=== PATIENT | male | born 1950 | race Caucasian/White ===

== ENCOUNTER 2023-09-09 17:48 | Emergency (ER) | payer BC, SELFPAY ==
[2023-09-09 17:50] VITALS: BP 176/87
--- NOTE | 2023-09-09 19:09 | ED.GENMED ---
History of Present Illness
General
Chief Complaint: Fainting/Passed Out
Source: patient
Exam Limitations: none
Time Seen by Provider: 09/09/23 18:53
Travel History
Have you had any contact with someone who has COVID-19?: No
Do you have any symptoms of coronavirus? Fever > 100 degrees, chills, cough, shortness of breath, sore throat, loss of taste or smell, muscle aches, or headache?: No
History of Present Illness
History of Present Illness:
This is a 72 year old male that comes in with c/o weakness and syncope. States that he has a bad case of Shingles. States that he started with the Shingles last week and today he went to . State that he was told it was to late to start the
Antivirals. States that today he was in the bathroom and he had passed out. States that he has been feeling very tired and weak. States that he did not eat all day. States that thought he needed an ECG and further evaluation. Denies any fever,
chills, chest pain, SOB, abd pain, nausea, vomiting, diarrhea, headache, dizziness, urinary burning.
Past History
Past History
ED Past Medical History: None; Negative Asthma, HTN, Hypercholesterolemia or NIDDM
ED Past Surgical History: None
Social History
Tobacco: Non-smoker
Alcohol: None
Personal:
Living: with family
Review of Systems
Review of Systems
All Other Systems: ROS reviewed and negative except as documented in HPI and ROS
Constitutional: Reports no symptoms; Denies fever or chills
EENT: Reports no symptoms
Respiratory: Reports no symptoms; Denies cough or trouble breathing
Cardiac: Reports no symptoms; Denies chest pain
ABD/GI: Denies abdominal pain, vomiting, diarrhea or constipated
: Reports no symptoms; Denies dysuria, frequency or urgency
Musculoskeletal: Reports no symptoms
Skin: Reports other (Shingles right abd around to back)
Neurological: Reports no symptoms; Denies dizzy or headache
Psychiatric: Reports no symptoms
Phy Exam
General Physical Exam
General Presentation: no apparent distress
General age: appears stated age
General Skin: warm and dry
General Habitus: elderly
General Mental: alert
General Hydration: appears well hydrated
ENT Exam
ENT Exam: TM's normal, pharynx normal and neck supple
Eye Exam
Eye Exam: EOMI
Cardiovascular Exam
Cardiovascular Exam: regular rate/rhythm, no edema and normal peripheral pulses
Pulmonary Exam
Pulmonary Exam: lungs clear, no respiratory distress, no rales, chest non tender, no crackles, no rhonchi, no wheezing and no cough
Gastrointestinal Exam
Gastrointestinal Exam: normal bowel sounds, non tender, soft, no organomegaly, no pulsatile mass and non distended
Musculoskeletal Exam
Musculoskeletal Exam: full ROM and no edema
Skin Exam
Skin Exam: normal color, warm/dry, no petechia and other (Shingles rash form mid abd around flank and onto the right mid back. Blistered areas noted with redness. )
Psychiatric Exam
Psychiatric Exam: normal mood/affect
Course
Orders/Labs/Results
Orders:
Orders
09/09/23 17:54
Electrocardiogram (*1) Urgent
Reason for Study: Chest Pain
09/09/23 17:55
EKG- Treatment ONCE
09/09/23 19:08
0.9% Sodium Chloride 1000 ml [Nss] 1,000 ml IV BOLUS
09/09/23 19:18
COVID-19 Antigen Urgent
Source: Nasal Swab
Complete Blood Count/With Diff Urgent
Comprehensive Metabolic Panel Urgent
Troponin I Urgent
Influenza A+B Rapid Molecular Urgent
JULY Source: Nasal Swab
Specimen Description:
09/09/23 20:56
Urinalysis Reflex To Culture Urgent
Date Specimen was Collected: 09/09/23
Time Specimen was Collected: 20:27
Urine Microscopic Reflex Cult Urgent
Abnormal Lab Results
09/09/23 09/09/23
19:18 20:56
RBC 4.31 L 10^6/uL
(4.70-6.10)
MCH 32.0 H pg
(27.0-31.0)
Absolute Lymphs (auto) 0.9 L 10^3/uL
(1.2-3.4)
Absolute Monos (auto) 0.9 H 10^3/uL
(0.1-0.6)
Neutrophils % 76.9 H %
(42.2-75.2)
Lymphocytes % 11.6 L %
(20.5-51.1)
Monocytes % 10.7 H %
(1.7-9.3)
Sodium 131 L mmol/L
(135-145)
Chloride 94 L mmol/L
(98-107)
Glucose 131 H mg/dl
(70-99)
Ur Occult Blood Reflex 1+ A
(Negative)
Urine RBC 7-10 A /HPF
(0-2)
09/09/23 19:18
09/09/23 19:18
Sodium slightly low. Chloride low. Urine negative for infection. Glucose nonfasting. Troponin <0.012, COVID and Influenza negative.
Vital Signs
Initial and Last Documented VS:
Initial Vital Signs
Temp Pulse Resp BP Pulse Ox
99.6 F 90 20 176/87 95
09/09/23 17:50 09/09/23 17:50 09/09/23 17:50 09/09/23 17:50 09/09/23 17:50
Last Documented Vital Signs
Temp Pulse Resp BP Pulse Ox
100.6 F H 68 20 165/71 96
09/09/23 18:58 09/09/23 21:59 09/09/23 21:59 09/09/23 21:00 09/09/23 21:45
MDM/Problems Addressed
Differential Diagnosis Includes:
fatigue, Dehydration,
MDM/Problems Addressed:
This is a 72 year old male that comes in with c/o Fatigue. States that he started with Shingles last week. Patient went to today and was sent to the ER for further evaluation. Offered patient pain medication and he refused. States that he doesn't
like to take medication.
Will check labs, ECG, Urine and given IV fluids.
Back into see patient. Reviewed all findings. Patient then proceeds to question if the fever could be coming form a tooth. Patient removed is partial plate and the upper gum is red with a loose tooth. States that he was given an antibiotic for this
but he did not take it. Explained that this could be the cause of his low grade fever and would suggest that the patient take the antibiotic and follow up with his Dentist. Offered patient pain medication again for his shingles and he refused. Will
discharge patient home.
Chronic conditions affecting care:
NA
Acute Exacerbation and/or Progression of Chronic Illness:
NA
*Pulse Oximetry
Patient hypoxic: no
*EKG
Interpreted by ED Provider?: Yes
Heart Rate: 87
Rate: normal
Rhythm: sinus
[place]: normal axis
Interval: normal interval
QRS Pattern: normal QRS
Ischemia: no ischemia
*Critical Care Note
Total Time (30-74mins, 75-104mins- exclusive of procedures): Not Applicable
ED Attending Note
-
Portions of this chart may have been created with voice recognition software.� Occasional wrong word or��sound alike� substitutions may have occurred due to the inherent limitations of voice recognition software.
Discharge Plan
Departure
Patient Disposition: Home (Routine Discharge)
Date of Disposition: 09/09/23
Time of Disposition: 22:03
Patient with high blood pressure during this ER visit?: Yes
Condition: Good
Covid-19: Negative COVID-19
Discharge Problem:
Fatigue, Shingles outbreak
Instructions: Fatigue (DC), Shingles, BLOOD PRESSURE
Referrals:
NONE,* [Family Provider] -
Activity Restrictions/Additional Instructions:
As discussed, your blood work shows that your sodium is very slightly low. You are negative for COVID and Influenza. Your urine is negative for infection. You low grade fever may be due to your dental issues. Please take the antibiotic that you were
prescribed. Follow up with your dentist and the family doctor. You may use Tylenol 1000mg every 6 hours for pain. Please increase your water intake to 8-8oz glasses daily. Try eating some canned soup or boxed food that will help increase your
sodium. IF YOU HAVE ANY OTHER CONCERNS PLEASE RETURN TO THE EMERGENCY ROOM.
Interventions
Interventions:
*Risk Screen - Suicide Last Done: 09/09/23 18:58
*General Assessment Last Done: 09/09/23 18:58
*Neglect/Abuse Screening Last Done: 09/09/23 18:58
ED- Fall Risk Assessment Last Done: 09/09/23 18:58
ED- Cardiac Assessment Last Done: 09/09/23 18:58
ED- Neurological Assessment Last Done: 09/09/23 18:58
Discharge Date and Time
Print Language: MAORI
[2023-09-09 19:27] LABS: % Basophils 0.5 % (0-2); % Immature Granulocytes 0.3 % (0-0.5); % Lymphocytes 11.6 % (20.5-51.1); % Monocytes 10.7 % (1.7-9.3); % Neutrophils 76.9 % (42.2-75.2); Absolute Lymphocytes 0.9 10^3/uL (1.2-3.4); Absolute Monocytes 0.9 10^3/uL (0.1-0.6); Absolute Neutrophils 6.1 10^3/uL (1.4-6.5); Hematocrit 39.9 % (39.0-52.0); Hemoglobin 13.8 g/dL (13.0-18.0); Mean Corp Hgb Conc. 34.6 g/dL (33.0-37.0); Mean Corpuscular Volume 92.6 fL (80.0-94.0); Mean Platelet Volume 8.8 fL (7.4-10.4); Nucleated Red Blood Cells % 0 % (-); Platelet Count 186 10^3/uL (130-400); Red Blood Cell Count 4.31 10^6/uL (4.70-6.10); Red Cell Dist. Width 12.2 % (11.5-14.5)
[2023-09-09 19:42] LABS: COVID-19 Antigen Negative (Negative)
[2023-09-09 19:45] LABS: ALT (SGPT) 21 U/L (0-50); AST (SGOT) 31 U/L (17-59); Albumin 4.6 g/dl (3.5-5.0); Alkaline Phosphatase 70 U/L (38-126); Blood Urea Nitrogen 19 mg/dl (9-20); Calcium 9.2 mg/dl (8.4-10.2); Carbon Dioxide 26 mmol/L (22-30); Chloride 94 mmol/L (98-107); Glucose 131 mg/dl (70-99); Potassium 4.1 mmol/L (3.5-5.1); Sodium 131 mmol/L (135-145); Total Bilirubin 1.1 mg/dl (0.2-1.3); Total Protein 8.1 g/dl (6.3-8.2); eGFR > 60.00
[2023-09-09 19:51] LABS: Troponin I < 0.012 ng/ml
[2023-09-09 20:07] VITALS: BP 165/76
[2023-09-09] MEDS: NSS 1000 IV (20:58)
[2023-09-09 21:00] VITALS: BP 165/71
[2023-09-09 21:06] LABS: Urine Albumin Trace (Neg - Trace); Urine Bilirubin Negative (Negative); Urine Character Clear (Clear); Urine Color Yellow; Urine Glucose Negative (Negative); Urine Ketone Negative (Negative); Urine Leukocyte Negative (Negative); Urine Nitrite Negative (Negative); Urine Occult Blood 1+ (Negative); Urine Urobilinogen Negative (Neg - 1+)
[2023-09-09 21:14] LABS: Urine Squamous Cell 0-2 /LPF (Few)
[2023-09-09 21:15] LABS: Urine White Cell None Seen /HPF (0-5)
== END 2023-09-09 22:20 | disposition home or self-care (01) ==
LOC: EMR 17:48
PROVIDERS: Clinical Nurse Specialist Family Health; EMERGENCY PHYSICIAN Emergency Medicine
DX: B02.9 Zoster without complications (principal); R53.83 Other fatigue
CPT/HCPCS: 99283; 96360; 80053; 81003; 81015; 84484; 85025; 87502; 87811; 93005

== ENCOUNTER 2023-11-05 11:35 | Inpatient (IN) | payer BC, SELFPAY ==
[2023-11-05] VITALS (12 sets, daily range): BP systolic 150–197; BP diastolic 70–101; BMI 24.8
--- NOTE | 2023-11-05 07:54 | ED.CVA ---
History of Present Illness
General
Chief Complaint: CVA/TIA Symptoms
Source: patient
Exam Limitations: none
Time Seen by Provider: 11/05/23 07:40
Nursing documentation reviewed up to this point in time: agreed with
Onset of Stroke Symptoms
Onset of symptoms known: Yes
Date of onset of symptoms: 11/03/23
Time of onset of symptoms: 07:00
Time pt last seen normal is known: Yes
Date last time pt seen normal: 11/02/23
History of Present Illness
History of Present Illness:
72-year-old male presents emergency department after being at work on Friday, and coworkers noticing him dropping things, right-sided facial droop and intermittent expressive aphasia. His was called and was told that started on Friday. He
home from work yesterday and refused, hospital.
Past History
Past History
ED Past Medical History: HTN; Negative Asthma, Hypercholesterolemia or NIDDM
ED Past Surgical History: None
Social History
Tobacco: Non-smoker
Alcohol: None
Personal:
Living: with family
Review of Systems
Review of Systems
Allergies reviewed?: Yes
All Other Systems: Not applicable
Constitutional: Reports no symptoms
EENT: Reports no symptoms
Respiratory: Reports no symptoms
Cardiac: Reports no symptoms
ABD/GI: Reports no symptoms
: Reports no symptoms
Musculoskeletal: Reports no symptoms
Skin: Reports no symptoms
Neurological: Reports other (Dropping things, aphasia, right facial droop)
Endocrine: Reports no symptoms
Hematologic/Lymphatic: Reports no symptoms
Psychiatric: Reports no symptoms
Phy Exam
Physical Exam
Physical Exam:
Physical Exam
General: no apparent distress, not acutely ill
Neck: supple. no meningeal signs. normal posterior pharynx
Heart: s1/s2 regular rate and rhythm, no murmur. equal radial
pulses.
HEENT: Pupils equal round reactive to light, EOMI
Lungs: no acute respiratory distress. clear bilaterally
Abdomen: normal bowel sounds. not tender. no CVAT
Neuro: alert and oriented. no focal neurological deficits right facial droop, otherwise normal cranial nerves
Skin: no rash
Psychiatric: well kept. interactive and cooperative
Extremities: no edema. no calf tenderness. negative homans. good distal pulses
Scores
NIH Stroke Score
Level of Consciousness: 0 - Alert
LOC Questions: 0-Answers both correctly
LOC Commands: 0-Performs both correctly
Best Horizontal Gaze: 0-Normal
Visual [place]: 0=Normal, no visual loss
Facial Palsy: 1=Minor paralysis
Motor - Right Arm: 1=Drift < 10 seconds
Motor - Left Arm: 0=No drift 10 seconds
Motor - Right Le-No drift 5 seconds
Motor - Left Le-No drift 5 seconds
Limb Ataxia: 0-Absent
Sensation: 0-Normal
Best Language: 1-Mild aphasia
Dysarthria: 0-Normal
Extinction and Inattention: 0-No abnormality
Total Score:: 3
Thrombolytic Contraindication
Inclusion and Exclusion criteria reviewed: Yes
Reasons for NON-Tx with Thrombolytics ABSOLUTE Exclusions: Greater than 4.5 hrs from onset of sxs
Course
Orders/Labs/Results
Orders:
Orders
11/05/23 07:29
Electrocardiogram (*1) Urgent
Reason for Study: TIA/Stroke
EKG- Treatment ONCE
11/05/23 07:45
Cardiovascular Evaluation Urgent
Complete Blood Count/With Diff Urgent
Comprehensive Metabolic Panel Urgent
Ferritin Routine
Comment: ADD ON
Folate Routine
Comment: ADD ON
Glycohemoglobin (HgbA1c) Urgent
TSH Reflex To Free T4 Routine
Comment: ADD ON
Vitamin B12 Routine
Comment: ADD ON
11/05/23 08:06
CT Head & Neck Angio W/wo IV Urgent
Comment:
Reason For Exam: right facial droop, dropping things, aphasia
MRI Brain [MR Brain Without Contrast] Urgent
Comment:
Reason For Exam: right facial droop, aphasia, 2 days
OK for patient to be off Cardiac Monitoring for MRI: No
Recent pill cam endoscopy?: No
11/05/23 09:21
Add On- LAB Routine
Tests Added?: folate, ferritin, TSH reflex, B12, lipid panel, hbA1c
Speech Therapy Eval & Treat Routine
Treatment: aphasia, acute stroke
11/05/23 09:22
NIH Stroke Scale As Directed
Directions: Per protocol
Ot Eval And Treat Routine
Treatment: RUE weakness, acute stroke
Pt Eval And Treat Routine
Treatment: RUE weakness, acute stroke
Activity Level: Out of Bed-Early Mobility
11/05/23 09:23
Neurological Checks As Directed
Frequency: Per unit guidelines
Patient Education As Directed
Type: Stroke education packet
11/05/23 10:01
Aspirin 325 mg PO NOW STA
Clopidogrel Bisulfate [Plavix] 75 mg PO NOW STA
11/05/23 10:59
Videofluoroscopy [RF Video Fluoro Swallow Exam] Routine
Comment:
Reason For Exam: Swallowing Function
11/05/23 11:00
Admit/Transfer Patient As Directed
Co-Sign Provider:
Level of Care: Inpatient admission
Assign to:: Telemetry
Physician / Group: nicole jackson
Diagnosis: stroke symptoms
Reason for Telemetry: CVA/TIA
Date to Stop Telemetry: 11/08/23
Time to Stop Telemetry: 11:00
Reason for Hospitalization: stroke symptoms
Expected length of stay greater than two midnights?: Yes
ELOS- Estimated Length of Stay in days: 2
I certify the patient meets the requirements for IP care: Yes
11/05/23 11:02
Code Status As Directed
Resuscitation Status: Do not resuscitate
Reached after discussion with pt or family/Healthcare POA: Yes
DNR Bracelet Application ONCE
11/05/23 12:56
Acetaminophen [Tylenol/Feverall] 650 mg RECTAL Q4HPRN PRN
Acetaminophen [Tylenol] 650 mg PO Q4HPRN PRN
HydrALAZINE [Apresoline] 10 mg IV Q4HPRN PRN
Ondansetron Injectable [Zofran] 4 mg IV Q6HPRN PRN
11/05/23 12:56
Echo 2D MMode Color/Doppler Routine
Reason for Study: stroke sx
NEUROLOGY CONSULT Routine
Consulting Provider: Marc Vincent
Was physician already notified: Yes
Activity As Directed
Activity Level: Ambulate
Vital Signs As Directed
Frequency: Per unit guidelines
DX Deep Vein Thrombosis Video Routine
11/05/23 13:41
Urinalysis Reflex To Culture Urgent
Date Specimen was Collected: 11/05/23
Time Specimen was Collected: 13:31
11/05/23 Dinner
NPO
Allow oral meds: Yes
Allow clear liquids: Sips of Clears
11/05/23 18:00
Enoxaparin Sodium [Lovenox] 40 mg SC QPM
11/06/23 06:00
Basic Metabolic Panel IN AM
Complete Blood Count/No Diff IN AM
Magnesium IN AM
11/08/23 11:00
DC Protocol for Telemetry ONCE
Abnormal Lab Results
11/05/23
07:45
WBC 12.5 H 10^3/uL
(4.8-10.8)
RBC 4.23 L 10^6/uL
(4.70-6.10)
MCV 94.3 H fL
(80.0-94.0)
MCH 31.7 H pg
(27.0-31.0)
Abs Immat Gran (auto) 0.1 H 10^3/uL
(0-0.05)
Absolute Neuts (auto) 11.2 H 10^3/uL
(1.4-6.5)
Absolute Lymphs (auto) 0.8 L 10^3/uL
(1.2-3.4)
Neutrophils % 89.5 H %
(42.2-75.2)
Lymphocytes % 6.4 L %
(20.5-51.1)
Glucose 144 H mg/dl
(70-99)
Hemoglobin A1c 5.9 H %
(4.0-5.6)
Ferritin 922.0 H ng/ml
(17.9-464.0)
Triglycerides 160 H mg/dl
(10-149)
Total Cholesterol 254 H mg/dl
(50-199)
VLDL Cholesterol, Calc 32 H mg/dl
(0-30)
11/05/23 07:45
11/05/23 07:45
Vital Signs
Initial and Last Documented VS:
Initial Vital Signs
Temp Pulse Resp BP Pulse Ox
98.7 F 86 26 195/94 96
11/05/23 07:30 11/05/23 07:30 11/05/23 07:30 11/05/23 07:30 11/05/23 07:30
Last Documented Vital Signs
Temp Pulse Resp BP Pulse Ox
98.9 F 76 18 163/86 98
11/05/23 13:33 11/05/23 13:33 11/05/23 13:33 11/05/23 13:33 11/05/23 13:33
MDM/Problems Addressed
Differential Diagnosis Includes:
Intracranial hemorrhage, CVA
MDM/Problems Addressed:
72-year-old male with acute CVA. TNK not indicated. IAT not indicated. Admit to hospitalist for further workup.
Chronic conditions affecting care: HTN
Acute Exacerbation and/or Progression of Chronic Illness: HTN
*Radiology
Radiology exam reviewed: radiology read reviewed (CT head shows large evolving acute/subacute nonhemorrhagic left basal ganglia infarct)
*Pulse Oximetry
Patient hypoxic: no
*EKG
Interpreted by ED Provider?: Yes
EKG Intrepretation Date: 11/05/23
EKG Intrepretation Time: 07:38
Interpretation: normal
Comparison EKG: no changes
Heart Rate: 86
Rate: normal
Rhythm: sinus
[place]: normal axis
Interval: normal interval
QRS Pattern: normal QRS
Ischemia: no ischemia
*Insurance Business Analyst Interpretation
Rate: normal
Interpretation: normal
Heart Rate: 88
Rhythm: sinus
*Critical Care Note
Total Time (30-74mins, 75-104mins- exclusive of procedures): Not Applicable
Data Reviewed
Prescriptions/Medications Considered But Not Given:
TNK not indicated
ED Attending Note
-
Portions of this chart may have been created with voice recognition software.� Occasional wrong word or��sound alike� substitutions may have occurred due to the inherent limitations of voice recognition software.
Discharge Plan
Departure
Patient Disposition: Admit
Date of Disposition: 11/05/23
Time of Disposition: 09:56
Admit to: Telemetry
Presentation/result/management discussed w/ accepting MD/DO: Hospitalist
Patient with high blood pressure during this ER visit?: Yes
Condition: Fair
Discharge Problem:
Acute cerebrovascular accident (CVA)
Interventions
Interventions:
*Risk Screen - Suicide Last Done: 11/05/23 07:30
*General Assessment Last Done: 11/05/23 07:30
*Neglect/Abuse Screening Last Done: 11/05/23 07:30
ED- Fall Risk Assessment Last Done: 11/05/23 07:43
*ED COVID-19 Vaccine History Last Done: 11/05/23 07:30
*Nursing Disposition Last Done: 11/05/23 12:50
ED- Pulmonary Assessment Last Done: 11/05/23 10:39
ED- Neurological Assessment Last Done: 11/05/23 07:43
ED- Cardiac Assessment Last Done: 11/05/23 07:43
ED Swallowing Screen Last Done: 11/05/23 10:39
Discharge Date and Time
Discharge Date/Time: 11/05/23 12:50
[2023-11-05 07:59] LABS: % Basophils 0.2 % (0-2); % Immature Granulocytes 0.5 % (0-0.5); % Lymphocytes 6.4 % (20.5-51.1); % Monocytes 3.4 % (1.7-9.3); % Neutrophils 89.5 % (42.2-75.2); Absolute Immature Granulocytes 0.1 10^3/uL (0-0.05); Absolute Lymphocytes 0.8 10^3/uL (1.2-3.4); Absolute Monocytes 0.4 10^3/uL (0.1-0.6); Absolute Neutrophils 11.2 10^3/uL (1.4-6.5); Hematocrit 39.9 % (39.0-52.0); Hemoglobin 13.4 g/dL (13.0-18.0); Mean Corp Hgb Conc. 33.6 g/dL (33.0-37.0); Mean Corpuscular Hgb 31.7 pg (27.0-31.0); Mean Corpuscular Volume 94.3 fL (80.0-94.0); Mean Platelet Volume 9.1 fL (7.4-10.4); Nucleated Red Blood Cells % 0 % (-); Platelet Count 193 10^3/uL (130-400); Red Blood Cell Count 4.23 10^6/uL (4.70-6.10); Red Cell Dist. Width 12.8 % (11.5-14.5); White Blood Cell Count 12.5 10^3/uL (4.8-10.8)
[2023-11-05 08:19] LABS: ALT (SGPT) 30 U/L (0-50); AST (SGOT) 57 U/L (17-59); Albumin 4.7 g/dl (3.5-5.0); Alkaline Phosphatase 72 U/L (38-126); Blood Urea Nitrogen 20 mg/dl (9-20); Calcium 9.6 mg/dl (8.4-10.2); Carbon Dioxide 26 mmol/L (22-30); Chloride 104 mmol/L (98-107); Estimated Creatinine Clearance 84 ml/min; Glucose 144 mg/dl (70-99); Potassium 3.9 mmol/L (3.5-5.1); Sodium 140 mmol/L (135-145); Total Bilirubin 0.9 mg/dl (0.2-1.3); Total Protein 8.2 g/dl (6.3-8.2); eGFR > 60.00
--- NOTE | 2023-11-05 08:19 | CON.NEURO4 ---
Addendum entered and electronically signed by Marc Vincent MD 11/05/23 16:25:
Studies reviewed.
I have personally examined the patient. I reviewed and agree with the RN HOME CARE's Note.
My addenda:
Awake, alert, interactive. No acute distress.
Speech intact.
Follows 2-step requests w/o difficulty. No tremor.
Extra-ocular movements grossly intact.
Facial movements full and symmetric. Hearing intact to normal conversational volume.
Normal UE movements bilaterally.
Neck: full ROM.
Chest: no dyspnea
Heart: no JVD
Ext: (-) Clubbing, (-) Cyanosis, (-) Edema
IMPRESSIONS/RECOMMENDATIONS:
Abrupt onset of left basal ganglia infarct as demonstrated by MRI of brain
Unfortunately, the patient was not a candidate for acute therapies due to onset of symptoms greater than 24 hours from presentation
Due to the relative severity provided both aspirin and clopidogrel. Patient received a loading dose of clopidogrel and will be maintained on this medication for 21 days before discontinuance. Aspirin use should be lifelong
Goal of normotension
Statin 80 mg daily due to LDL being elevated
Rehabilitation evaluations
Will continue to follow peripherally..
Original Note:
Documented by User: Solange Barnett NP 11/05/23 13:19
Consultation - Neurology 4
-
CONSULTING PHYSICIAN: Marc Vincent MD
REFERRING PHYSICIAN: ER/Dr. Salguero
DICTATED BY: DALLIN Kaiser
DATE/TIME OF REQUEST: 11/05/23
DATE/TIME OF CONSULTATION: 11/05/23
Reason for Consultation: CVA
History of Present Illness:
This is a 72-year-old right-handed male who has presented to the hospital with report of aphasia, dropping things in his right hand, and balance issues starting two days ago. Patient's is minimally able to verbalize recent events but his at
bedside reports that two days ago on Friday (11/03/23) she came home from work at 1700 and the patient was minimally verbal towards her. She thought he was just upset about something, he proceeded to go for a bike ride and had a typical night. Then
yesterday morning (11/04/23), she found him trying to get dressed for work, he was struggling to get his clothes on, was diaphoretic, and still minimally verbal. She helped lower him to the ground because he was too weak to stand, and then helped him
get to bed. He refused to go to the ER and proceeded to sleep most of the day. Later in the evening she reports he was speaking more and seemed somewhat improved. This morning (11/05/23) he woke up, got dressed, and went to work. At work, his
coworkers noted that he was not speaking normally and he was dropping things from his right hand, and they called 911. CTA head/neck was obtained on arrival in the ER and demonstrates a large evolving acute/subacute nonhemorrhagic left basal ganglia
infarct, ASPECTS score 9. NIHSS is a 3 for right facial droop, aphasia, and RUE drift. He is not a candidate for TNK/IAT due to being outside of the time window, stroke already visualized on CT imaging. BP is 197/97. Patient denies any headache,
dizziness, nausea, numbness, chest pain, palpitations, and shortness of breath. He endorses difficulty speaking and swallowing. He denies any history of TIA, stroke, or events like this in the past. He was not taking any blood-thinning medications.
Past Medical History: HTN, shingles 09/2023, Covid 08/2022, syncope
Surgical History: Denies.
Family History: Reviewed and noncontributory.
Social History: Denies tobacco, alcohol, and illicit drug use.
Allergies: No known allergies.
Home Medications: See below.
Review of Symptoms:
Patient denies any fever, headache, chest pain, shortness of breath, GI or symptoms.
�Per the HPI.�All systems are reviewed negative except above.
Physical Exam:
The patient is afebrile, abdomen is nondistended, breathing is unlabored, skin is warm and dry, no edema. 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
NIH Stroke Scale:
I performed the NIH stroke scale on the patient on 11/05/23 at 0830. The patient scored 3 points on the NIH stroke scale assessment, which were assigned as follows: See below.
Neurologic Examination:
The patient is awake, alert and oriented x 3. He is able to follow commands. There is moderate aphasia, verbal responses are significantly reduced. No dysarthria. On cranial nerve assessment, pupils are 3 mm bilateral, round and reactive to light
and accommodation. Visual de leon are full. Extraocular movements are intact. There is right facial drooping. Hearing is intact bilaterally to normal conversation volume. Tongue palate and uvula are midline. Motor strengths are 5/5 left upper, 4+/5
right upper/finger spread, and 5/5 bilateral lower extremities on medical research Bradford scale. There is drift in the RUE. No involuntary movement noted. Deep tendon reflexes are 2+ bilateral upper and lower extremities and Babinski is absent
bilaterally. There was no extinction noted on double simultaneous stimulation. Coordination is intact by finger to nose bilaterally.
Lab Results: See below.
Neuro Imaging:
1. CTA head/neck 11/05/23: Large evolving acute/subacute nonhemorrhagic left basal ganglia infarct. ASPECTS score: 9. Atherosclerosis at the carotid bifurcations and proximal internal carotid arteries bilaterally without findings to suggest
hemodynamically significant stenosis. Mildly dominant left vertebral artery. No findings to suggest vertebral artery or internal carotid artery dissection bilaterally. No findings to suggest significant proximal intracranial arterial stenosis or
vessel cut off.
2. MRI brain 11/05/23: Large acute ischemic infarct involving the left basal ganglia. No significant mass effect. No midline shift.
Differentials for the patient's presentation include:
1. Large acute left basal ganglia ischemic infarct as demonstrated on MRI brain imaging.
2. Hypertension
3. HLD
Patient has the following risk factors for their symptoms: HTN, HLD, age
IV Tenecteplase/IAT candidacy: He is not a candidate for TNK/IAT due to being outside of the time window, stroke already visualized on CT imaging.
Recommendations:
-Provide a loading dose of aspirin and Plavix x1 now. Continue DAPT for 21 days. After 21 days, discontinue Plavix and continue aspirin 81mg daily only, indefinitely.
-Goal normotension as it is greater than 24 hours from symptom onset.
-Monitor on telemetry. TTE pending.
-LDL goal <70. LDL is 184. Initiate atorvastatin 80mg daily.
-Goal normoglycemia, hbA1c is 5.9.
-NIHSS and neurological checks per unit guidelines.
-Provide patient with a stroke education packet.
-PT/OT/ST evaluations.
-DVT prophylaxis.
Discussed patient care with: Dr. Vincent, Dr. Salguero, the patient, patient's family
Vital Signs and Labs
-
Vital Signs and Labs:
Vital Signs
Temp Pulse Resp BP Pulse Ox
98.7 F 71 24 175/101 97
11/05/23 07:30 11/05/23 11:30 11/05/23 07:45 11/05/23 11:00 11/05/23 11:30
Lab Results
11/05/23 07:45
11/05/23 07:45
Sodium 140 mmol/L (135-145) 11/05/23 07:45
Potassium 3.9 mmol/L (3.5-5.1) 11/05/23 07:45
BUN 20 mg/dl (9-20) 11/05/23 07:45
Glucose 144 mg/dl (70-99) H 11/05/23 07:45
Calcium 9.6 mg/dl (8.4-10.2) 11/05/23 07:45
LDL Cholesterol, Calc 184 mg/dl 11/05/23 07:45
Medications
-
Home Medications
�Medication �Instructions �Recorded
No Meds [No Current Medications] 11/05/23
NIH Stroke Score
Subsequent NIH Scale
Date of Subsequent NIH Scale: 11/05/23
Time of Subsequent NIH Scale: 08:30
NIH Stroke Score
Level of Consciousness: 0 - Alert
LOC Questions: 0-Answers both correctly
LOC Commands: 0-Performs both correctly
Best Horizontal Gaze: 0-Normal
Visual De Leon: 0=Normal, no visual loss
Facial Palsy: 1=Minor paralysis
Motor - Right Arm: 1=Drift < 10 seconds
Motor - Left Arm: 0=No drift 10 seconds
Motor - Right Le-No drift 5 seconds
Motor - Left Le-No drift 5 seconds
Limb Ataxia: 0-Absent
Sensation: 0-Normal
Best Language: 1-Mild aphasia
Dysarthria: 0-Normal
Extinction and Inattention: 0-No abnormality
Total Score:: 3
Modified Hinckley (mRS) Score
Modified Hinckley Scale (mRS): Moderate disability. Requires some help, able to walk unassisted.
Score: 3
Alteplase Contraindication
Reasons for NON-Tx with Thrombolytics ABSOLUTE Exclusions: Greater than 4.5 hrs from onset of sxs

Documented by User: Marc Vincent MD 11/05/23 16:23
NIH Stroke Score
NIH Stroke Score
Total Score:: 3
Modified Hinckley (mRS) Score
Score: 3
[2023-11-05] MEDS: ASPIRIN 325 MG PO (10:13)
[2023-11-05] MEDS: PLAVIX 75 MG PO (10:13)
--- NOTE | 2023-11-05 10:32 | HPS.HSE ---
Family Physician
-
Family Physician: * NONE
Chief Complaint
-
Speech difficulties, dropping things
History of Present Illness
72-year-old male with a past medical history of hypertension who presents with speech difficulties and dropping items since Friday. reports that patient was speaking less than usual since Friday, and was also sleeping more yesterday. Patient
has been having a difficult time dressing himself, and speaking. Patient went to work today, and his colleagues noticed he continued to be dropping items. Patient reports difficulty speaking, swallowing. He denies weakness. No fever, no
vomiting. No chest pain, no shortness of breath. No black or bloody stools. He has a known history of hypertension, but does not see doctors regularly.
Medical History
Past Medical History
Past Medical History: Reports HTN
Past Surgical History: Reports None and Other
Social History
Tobacco: Non-smoker
Alcohol: None
Drug: None
Personal:
Family History
Family History: Not pertinent
Allergies / Home Medications
Allergies reflects when Allergies were last updated in [employer].
Home Medications with original date entered in [employer]
Allergy/Medication List:
Allergies
Allergy/AdvReac Type Severity Reaction Status Date / Time
No Known Allergies Allergy Verified 09/09/23 17:54
Home Medications Table - record
�Medication �Instructions �Recorded �Confirmed
No Meds [No Current Medications] 11/05/23 11/05/23
Review of Systems
-
A 12 point ROS was completed and negative except as noted: Yes
Physical Exam
Vital Signs
Vital Signs
Temp Pulse Resp BP Pulse Ox
98.7 F 76 24 159/70 96
11/05/23 07:30 11/05/23 10:15 11/05/23 07:45 11/05/23 10:00 11/05/23 10:15
Physical Exam
General: Well Developed, Well Nourished and No Apparent Distress
HEENT: NormoCephalic, Anicteric and Moist mucous membranes
Respiratory: Clear
Cardiac: S1/S2 and Regular Rhythm
GI: Soft, Non Tender, Non Distended and Normal Bowel Sounds
Musculoskeletal: No Clubbing, No Cyanosis and No Edema
Neuro: Awake, Alert and Other (Expressive aphasia noted, right facial droop noted, bilateral resting tremor of the arms, right greater than left)
Psych: Calm
Laboratory Results
-
11/05/23 07:45
11/05/23 07:45
Laboratory Results
Total Bilirubin 0.9 mg/dl (0.2-1.3) 11/05/23 07:45
AST 57 U/L (17-59) 11/05/23 07:45
ALT 30 U/L (0-50) 11/05/23 07:45
Alkaline Phosphatase 72 U/L (38-126) 11/05/23 07:45
Impression/Plan
-
HPI: 72-year-old male with a past medical history of hypertension who presents with speech difficulties and dropping items since Friday. reports that patient was speaking less than usual since Friday, and was also sleeping more yesterday.
Patient has been having a difficult time dressing himself, and speaking. Patient went to work today, and his colleagues noticed he continued to be dropping items. Patient reports difficulty speaking, swallowing. He denies weakness. No fever, no
vomiting. No chest pain, no shortness of breath. No black or bloody stools. He has a known history of hypertension, but does not see doctors regularly.
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
#Expressive aphasia
#Dysphagia
#Dropping items
Neurology consulted, PT/OT/SPL, started on aspirin 81 mg daily, Plavix 75 mg daily
LDL 184�start atorvastatin. Check echo
Allow permissive hypertension
#Prediabetes, hemoglobin A1c 5.9
Monitor
#Bilateral arm resting tremor, right greater than left
Monitor
#Benign essential hypertension
Allow for permissive hypertension for 24 hours, IV hydralazine ordered as needed systolic blood pressure greater than 220
DVT prophylaxis�subcu Lovenox
DNR
Updated at bedside 11/04
[2023-11-05 10:34] LABS: HDL Cholesterol 38 mg/dl; LDL Cholesterol, Calculated 184 mg/dl; Total Cholesterol 254 mg/dl (50-199); Triglyceride 160 mg/dl (10-149); Very Low Density Lipoprotein 32 mg/dl (0-30)
--- NOTE | 2023-11-05 11:34 | PTOTSP ---
NON LICENSED NUCLEAR EQUIPMENT OPERATOR Evaluations
Patient presents with signs concerning for oral/pharyngeal dysphagia and aspiration t/o clinical swallow evaluation. He is at risk for dysphagia given large evolving left basal ganglia infarct. Objective assessment of swallowing warranted via video
swallow study prior to a diet initiation.
Patient also with mild dysarthria/dysphonia and signs concerning for mixed at least moderate expressive greater than mild receptive language deficits. Will complete further testing such as Quick Aphasia Battery (QAB) in follow up as
able/appropriate.
Recommend:
1. NPO
2. Aspiration Risk Hydration Protocol - single sips of water with nursing supervisioni after oral care
3. Oral care 3x daily
4. Medications - essential medications in puree
5. Video swallow study.
6. QAB
[2023-11-05 11:42] LABS: Glycohemoglobin (HgbA1c) 5.9 % (4.0-5.6)
[2023-11-05 12:08] LABS: TSH Reflex To Free T4 4.33 uIU/ml (0.47-4.68)
[2023-11-05 12:50] LABS: Folate 16.3 ng/ml (2.76-20)
[2023-11-05 14:00] LABS: Urine Albumin Negative (Neg - Trace); Urine Bilirubin Negative (Negative); Urine Character Clear (Clear); Urine Color Yellow; Urine Glucose Negative (Negative); Urine Ketone Negative (Negative); Urine Leukocyte Negative (Negative); Urine Nitrite Negative (Negative); Urine Occult Blood Negative (Negative); Urine Specific Gravity 1.015 (<1.030); Urine Urobilinogen Negative (Neg - 1+)
[2023-11-05 14:15] LABS: Vitamin B12 199 pg/ml (239-931)
--- NOTE | 2023-11-05 14:57 | PTOTSP ---
Video Swallow Examination
Summary: Patient presents with mild-moderate oral and pharyngeal dysphagia due to large acute CVA of left basal ganglia. There was aspiration with and without a cough response with thin liquids via cup. Volitional cough was weak/ineffective. See
patient care note for details about physiology, penetration/aspiration, and strategies.
Recommend:
1. IDDSI Level 6 Soft/Bite Sized, IDDSI Level 2 Mildly Thick Liquids
2. Medications - crushed in puree if medically cleared to do so
3. Strategies: full supervision, assistance as needed, upright to 90 degrees, small sips/bites, slow rate
4. Oral care 3x daily
5. Aspiration Risk Hydration Protocol - single sips of thin liquid water via cup after oral care with nursing supervision
6. Dysphagia therapy at the acute care level. Consider repeating swallow study prior to liquid advancement given inconsistent sensory response to aspiration.
[2023-11-05] MEDS: LIPITOR 80 MG PO (17:34)
[2023-11-05] MEDS: LOVENOX 40 MG SC (17:34)
[2023-11-06] VITALS (8 sets, daily range): BP systolic 127–163; BP diastolic 60–104; PULSE 75
--- NOTE | 2023-11-06 07:26 | W.PN.NEURO.1 ---
Today's Communication / Plan
-
Due to the relative severity provided both aspirin and clopidogrel. Patient received a loading dose of clopidogrel and will be maintained on this medication for 21 days before discontinuance. Aspirin use should be lifelong
Goal of normotension
Atorvastatin 80 mg daily due to LDL being elevated
Neuro Assessment/Plan
Assessment
IMPRESSIONS/RECOMMENDATIONS:
Abrupt onset of left basal ganglia infarct as demonstrated by MRI of brain
Unfortunately, the patient was not a candidate for acute therapies due to onset of symptoms greater than 24 hours from presentation
Plan
Due to the relative severity provided both aspirin and clopidogrel. Patient received a loading dose of clopidogrel and will be maintained on this medication for 21 days before discontinuance. Aspirin use should be lifelong
Goal of normotension
Atorvastatin 80 mg daily due to LDL being elevated
Will follow as needed.
Subjective/Objective
Subjective Data
Date of Service: November 06, 2023
Objective Data
Vital Signs
Temp Pulse Resp BP Pulse Ox
36.7 C 75 18 163/104 98
11/06/23 03:58 11/06/23 03:58 11/06/23 03:58 11/06/23 03:58 11/06/23 03:58
Sodium 140 mmol/L (135-145) 11/05/23 07:45
Potassium 3.9 mmol/L (3.5-5.1) 11/05/23 07:45
BUN 20 mg/dl (9-20) 11/05/23 07:45
Glucose 144 mg/dl (70-99) H 11/05/23 07:45
Calcium 9.6 mg/dl (8.4-10.2) 11/05/23 07:45
LDL Cholesterol, Calc 184 mg/dl 11/05/23 07:45
Vitamin B12 199 pg/ml (239-931) L 11/05/23 07:45
Patient Allergies
No Known Allergies Allergy (Verified 09/09/23 17:54)
Data Reviewed
-
CT-A: Report Reviewed
MRI Head: Report Reviewed and Image Reviewed
Labs: Report Reviewed
HgbA1C: Report Reviewed
Old Records: Summarized
Past History
Past History
ED Past Medical History: CVA (November 2023) and HTN; Negative Asthma, Hypercholesterolemia or NIDDM
ED Past Surgical History: None
Social History
Tobacco: Non-smoker
Alcohol: None
Personal:
Living: with family
Family History
Family History: Other (Reviewed and noncontributory)
Medications
-
Medications:
Generic Name Dose Route Start Last Admin
Trade Name Freq PRN Reason Stop Dose Admin
Acetaminophen 650 mg 11/05/23 12:56
Acetaminophen 325 Mg Tablet PO 12/03/23 12:55
Q4HPRN PRN
mild pain/GARDNER/temp> 100.4F
Acetaminophen 650 mg 11/05/23 12:56
Acetaminophen 650 Mg Rectal Suppository RECTAL 12/03/23 12:55
Q4HPRN PRN
mild pain/GARDNER/temp> 100.4F
Aspirin 81 mg 11/06/23 08:00
Aspirin 81 Mg Chewable Tablet PO 12/04/23 07:59
DAILY JOEL
Atorvastatin Calcium 80 mg 11/05/23 18:00 11/05/23 17:34
Atorvastatin (Lipitor) 80 Mg Tablet PO 12/03/23 17:59 80 mg
QPM JOEL Administration
Clopidogrel Bisulfate 75 mg 11/06/23 08:00
Clopidogrel 75 Mg Tablet PO 11/27/23 07:59
DAILY JOEL
Enoxaparin Sodium 40 mg 11/05/23 18:00 11/05/23 17:34
Enoxaparin Sodium 40 Mg/0.4 Ml Syringe SC 12/03/23 17:59 40 mg
QPM JOEL Administration
Hydralazine HCl 10 mg 11/05/23 12:56
Hydralazine 20 Mg/Ml Vial IV 12/03/23 12:55
Q4HPRN PRN
SBP > 220 mmHg
Ondansetron HCl 4 mg 11/05/23 12:56
Ondansetron 4 Mg/2 Ml Vial IV 12/03/23 12:55
Q6HPRN PRN
nausea and vomiting
Sodium Chloride 0 flush 11/05/23 13:00
Sodium Chloride 0.9% (Flush) Syringe IV 12/03/23 12:59
PER PROTOCOL JOEL
[2023-11-06 07:33] LABS: Hematocrit 35.3 % (39.0-52.0); Hemoglobin 12.3 g/dL (13.0-18.0); Mean Corp Hgb Conc. 34.8 g/dL (33.0-37.0); Mean Corpuscular Volume 91.9 fL (80.0-94.0); Mean Platelet Volume 8.8 fL (7.4-10.4); Platelet Count 174 10^3/uL (130-400); Red Blood Cell Count 3.84 10^6/uL (4.70-6.10); White Blood Cell Count 8.4 10^3/uL (4.8-10.8)
[2023-11-06 08:22] LABS: Blood Urea Nitrogen 20 mg/dl (9-20); Calcium 9.2 mg/dl (8.4-10.2); Carbon Dioxide 29 mmol/L (22-30); Chloride 102 mmol/L (98-107); Estimated Creatinine Clearance 84 ml/min; Glucose 109 mg/dl (70-99); Magnesium 2.2 mg/dl (1.6-2.3); Potassium 4.2 mmol/L (3.5-5.1); Sodium 140 mmol/L (135-145); eGFR > 60.00
[2023-11-06] MEDS: LOW STRENGTH ASPIRIN 81 MG PO (08:35)
[2023-11-06] MEDS: VITAMIN B-12 1000 MCG PO (08:35)
[2023-11-06] MEDS: PLAVIX 75 MG PO (08:35)
--- NOTE | 2023-11-06 08:46 | W.PN.HOSP.TC ---
Today's Communication/Plan
-
see bold
Assessment / Plan
Assessment / Plan
HPI: 72-year-old male with a past medical history of hypertension who presents with speech difficulties and dropping items since Friday. reports that patient was speaking less than usual since Friday, and was also sleeping more yesterday.
Patient has been having a difficult time dressing himself, and speaking. Patient went to work today, and his colleagues noticed he continued to be dropping items. Patient reports difficulty speaking, swallowing. He denies weakness. No fever, no
vomiting. No chest pain, no shortness of breath. No black or bloody stools. He has a known history of hypertension, but does not see doctors regularly.
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
#Expressive aphasia
#Dropping items
Neurology consulted, PT/OT/SPL, started on aspirin 81 mg daily for life, Plavix 75 mg daily x 3 weeks through 11/26/23
LDL 184�started atorvastatin. Echo reviewed
Goal of normotension
#Dysphagia
VSE 11/04 showing aspiration with thin liquids
SPL recommends soft diet with moderately thickened liquids, continue SPL
#Vitamin B12 deficiency
Started on oral vitamin B12 supplements
#Benign essential hypertension
Goal of normotension
Start lisinopril
#Prediabetes, hemoglobin A1c 5.9
Monitor
#Bilateral arm resting tremor, right greater than left
Monitor
DVT prophylaxis�subcu Lovenox
DNR
Updated at bedside 11/05
Total time spent to see the patient on the floor, examine the patient, review data and lab results, discuss treatment plan with patient, nursing staff around 50 minutes.
Physical Exam
General: Well Developed, Well Nourished and No Apparent Distress
HEENT: NormoCephalic, Anicteric and Moist mucous membranes
Respiratory: Clear
Cardiac: S1/S2 and Regular Rhythm
GI: Soft, Non Tender, Non Distended and Normal Bowel Sounds
Musculoskeletal: No Clubbing, No Cyanosis and No Edema
Neuro: Awake, Alert and Other (Expressive aphasia noted, right facial droop noted, bilateral resting tremor of the arms, right greater than left)
Psych: Calm
Anticipated Discharge: Within 24 hours
Subjective/Interval History
-
Date of Service: November 06, 2023
Patient speech is mildly improved. He is tolerating his diet. No fever, no vomiting.
Objective Data
-
Labs:
Laboratory Results
11/06/23
07:22
WBC 8.4
Hgb 12.3 L
Hct 35.3 L
Plt Count 174
Sodium 140
Potassium 4.2
Chloride 102
Carbon Dioxide 29
BUN 20
Creatinine 0.9
Glucose 109 H
Calcium 9.2
Vital Signs:
Vital Signs
Temp Pulse Resp BP Pulse Ox
97.9 F 64 12 161/78 98
11/06/23 07:22 11/06/23 07:22 11/06/23 07:22 11/06/23 07:22 11/06/23 07:22
I&O
11/05/23 11/06/23 11/07/23
06:59 06:59 06:59
Intake Total 120 / 120
Output Total 450 / 450
Balance -330 / -330
[2023-11-06] MEDS: ZESTRIL 10 MG PO ×2 (10:35→21:49)
--- NOTE | 2023-11-06 11:33 | PTOTSP ---
Speech Therapy
Swallowing function: BOLTER HELPER observed RN administer medications crushed in puree in which patient appeared to tolerate as he did not exhibit any overt difficulty. BOLTER HELPER observed patient with several bites and sips from his meal tray (ISSI level 6 and
nectar thick liquids) in which patient appeared to tolerate as he did not exhibit any overt clinical s/sx of aspiration or difficulty with mastication.
Swallowing Therapy: BOLTER HELPER introduced effortful swallow pharyngeal strengthening exercise in which patient completed 2/5 attempts with maximal physical and tactile cuing from BOLTER HELPER. BOLTER HELPER utilized small, single cup sips of thin liquids (ARHP) to assist
with swallowing maintenance, hydration, and promote swallowing. Patient became frustrated during the exercises. BOLTER HELPER stressed the importance of utilizing the exercises throughout the day in hopes to improve pharyngeal strength and coordination.
BOLTER HELPER utilized portions of the Quick Aphasia Battery and Jacobo Congnitive Assessment to further quantify his speech, language, and cognitive functioning.
Quick Aphasia Battery:
Level of consciousness: 12/10
Oriented: 04/15
Commands: 04/15
Connected speech: patient demonstrated word finding difficulty, circumlocutions, repetitions, and substitutions throughout his description of his favorite trip. Patient verbalized frustration with his speech. Patient's speech was short in length,
slow in pace, and halting at times.
Bidwell Cognitive Assessment:
executive functionin/1
fluency: 0/2
calculation: 3/3
abstraction: 2/3
visuoperception: 2/3
attention: 3/3
In sum, patient is demonstrating expressive aphasia which appears to hinder his communicative abilities at this time. In addition, patient's cognitive function appears to be impaired in comparison to his and his 's report of baseline
functioning.
Recommendations:
1. IDDSI Level 6 Soft/Bite Sized, IDDSI Level 2 Mildly Thick Liquids
2. Medications - crushed in puree if medically cleared to do so
3. Strategies: full supervision, assistance as needed, upright to 90 degrees, small sips/bites, slow rate
4. Oral care 3x daily
5. Aspiration Risk Hydration Protocol - single sips of thin liquid water via cup after oral care with nursing supervision
6. Speech, language and cognition therapy
Plan: Dysphagia, speech, language, and cognitive therapy at the acute care level. Consider repeating swallow study prior to liquid advancement given inconsistent sensory response to aspiration.
[2023-11-06] MEDS: LOVENOX 40 MG SC (17:16)
[2023-11-06] MEDS: LIPITOR 80 MG PO (17:16)
[2023-11-07] VITALS (7 sets, daily range): BP systolic 114–149; BP diastolic 61–75; PULSE 65; O2SAT 98
[2023-11-07] MEDS: VITAMIN B-12 1000 MCG PO (07:46)
[2023-11-07] MEDS: PLAVIX 75 MG PO (07:46)
[2023-11-07] MEDS: ZESTRIL 20 MG PO (07:46)
[2023-11-07] MEDS: LOW STRENGTH ASPIRIN 81 MG PO (07:46)
--- NOTE | 2023-11-07 08:37 | W.PN.HOSP.TC ---
Today's Communication/Plan
-
Medically stable for discharge to acute rehab when bed available
Assessment / Plan
Assessment / Plan
HPI: 72-year-old male with a past medical history of hypertension who presents with speech difficulties and dropping items since Friday. reports that patient was speaking less than usual since Friday, and was also sleeping more yesterday.
Patient has been having a difficult time dressing himself, and speaking. Patient went to work today, and his colleagues noticed he continued to be dropping items. Patient reports difficulty speaking, swallowing. He denies weakness. No fever, no
vomiting. No chest pain, no shortness of breath. No black or bloody stools. He has a known history of hypertension, but does not see doctors regularly.
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
#Expressive aphasia
#Dropping items
Neurology consulted, PT/OT/SPL, started on aspirin 81 mg daily for life, Plavix 75 mg daily x 3 weeks through 11/26/23
LDL 184�started atorvastatin. Echo reviewed
Goal of normotension
Medically stable for discharge to acute rehab when bed available
#Dysphagia
VSE 11/04 showing aspiration with thin liquids
SPL recommends soft diet with moderately thickened liquids, continue SPL
#Vitamin B12 deficiency
Started on oral vitamin B12 supplements
#Benign essential hypertension
Goal of normotension
Blood pressure controlled on lisinopril 20 mg daily
#Prediabetes, hemoglobin A1c 5.9
Monitor
#Bilateral arm resting tremor, right greater than left
Monitor
DVT prophylaxis�subcu Lovenox
DNR
Updated at bedside 11/05
Physical Exam
General: Well Developed, Well Nourished and No Apparent Distress
HEENT: NormoCephalic, Anicteric and Moist mucous membranes
Respiratory: Clear
Cardiac: S1/S2 and Regular Rhythm
GI: Soft, Non Tender, Non Distended and Normal Bowel Sounds
Musculoskeletal: No Clubbing, No Cyanosis and No Edema
Neuro: Awake, Alert and Other (Expressive aphasia noted, right facial droop noted, bilateral resting tremor of the arms, right greater than left)
Psych: Calm
Anticipated Discharge: Within 24 hours
Subjective/Interval History
-
Date of Service: November 07, 2023
Patient's expressive aphasia continues to improve. No fever, no vomiting.
Objective Data
-
Vital Signs:
Vital Signs
Temp Pulse Resp BP Pulse Ox
97.9 F 66 20 146/72 95
11/07/23 07:00 11/07/23 07:00 11/07/23 07:00 11/07/23 07:00 11/07/23 07:00
I&O
11/06/23 11/07/23 11/08/23
06:59 06:59 06:59
Intake Total 120 / 120 560 / 560
Output Total 450 / 450 500 / 500
Balance -330 / -330 60 / 60
--- NOTE | 2023-11-07 12:55 | CM ---
Patient seen bedside with , Shannan, initial assessment completed. Patient resides with his in a raised rancher, six steps to enter. Patient denies use of DME at home, denies VN or SNF history. Patient reports he has not been to PCP in a few
years, was previously at [facility]. Pharmacy used [facility]. Patient denies food insecurities, housing/utility, and transportation insecurities. PT/OT recommending acute rehab, PMR consult placed. Family requesting referral to
[facility], sent in [facility]. CM will continue to follow for all discharge planning needs.
Plan; [facility] rehab pending acceptance, will need insurance auth.
--- NOTE | 2023-11-07 15:52 | CON.MD ---
Consultation - Medical
-
Referring Provider:�Dr. Karlene Orozco
Chief Complaint:�Stroke
�
History of Present Illness:�72-year-old [id number] male with PMH (HTN) presented to [facility] on 11/05/2023 with difficulty speaking, swallowing, and right sided weakness for 2 days. MRI noting an acute left basal ganglia
infarction, not a candidate for thrombolytics or thrombectomy. Started on aspirin and Plavix for 21 days (last dose 11/26/2023) followed by aspirin lifelong. Noted with dysphagia status post video swallow study 11/04 noting aspiration with thin
liquids and he was placed on a soft diet with moderately thick liquids. Also noted with B12 deficiency and started on supplementation.
�
Past Medical History:�Hypertension, left second digit distal phalanx amputation at age 6
Procedure History:�Denies
Family History:�Denies
�
Social History:�
Functional Level Premorbidly:�Independent with all activities�
Functional Level Currently:�Min assist transfers, min assist ambulating 100 feet x 2 without device.
�
Tobacco:Denies�
Alcohol:Denies�
Drug use:�Denies�
�
Lives with:�
24-hour assistance available:�Yes
Number of floors:�1
# steps to enter:�4
# steps to second floor: None
Potential First floor set up:�Yes
Driving:�Yes
Occupation:�Works with [employer]
�
�
Allergies:�
Allergy/AdvReac Type Severity Reaction Status Date / Time
No Known Allergies Allergy Verified 09/09/23 17:54
Review of Systems:�
Constitutional: (x) abNormal _fatigue
Eye: (x) Normal _
Ear/Nose/Throat: (x) Normal _
Respiratory: (x) Normal _
Cardiovascular: (x) Normal _
Gastrointestinal: (x) Normal _continent of bowel
Genitourinary: (x) Normal _continent of bladder
Musculoskeletal: (x) Normal _
Integumentary: (x) Normal _
Neurologic: (x) abNormal _stroke with difficulty speaking, swallowing, right-sided weakness
Psychiatric: (x) Normal _
Endocrine: (x) Normal _
Hematologic/Lymphatic: (x) Normal _
Allergic/Immunologic: (x) Normal _
�
Medications:�
Active Current Visit Medication List
Category Date Time Status
Acetaminophen [Tylenol/Feverall] Med 11/05/23 12:56 Active
650 mg RECTAL Q4HPRN PRN
Acetaminophen [Tylenol] Med 11/05/23 12:56 Active
650 mg PO Q4HPRN PRN
Aspirin Chewable [Low Strength Aspirin] Med 11/06/23 08:00 Active
81 mg PO DAILY
Atorvastatin [Lipitor] Med 11/05/23 18:00 Active
80 mg PO QPM
Clopidogrel Bisulfate [Plavix] Med 11/06/23 08:00 Active
75 mg PO DAILY
Cyanocobalamin [Vitamin B-12] Med 11/06/23 08:00 Active
1,000 mcg PO DAILY
Enoxaparin Sodium [Lovenox] Med 11/05/23 18:00 Active
40 mg SC QPM
Flush (0.9% Sodium Chloride) [Flush (Nss)] Med 11/05/23 13:00 Active
See Dose Instructions IV PER PROTOCOL
HydrALAZINE [Apresoline] Med 11/05/23 12:56 Active
10 mg IV Q4HPRN PRN
Lisinopril [Zestril] Med 11/07/23 08:00 Active
20 mg PO DAILY
Ondansetron Injectable [Zofran] Med 11/05/23 12:56 Active
4 mg IV Q6HPRN PRN
Vitals:�
Temp Pulse Resp BP Pulse Ox
98.2 F 70 16 125/67 97
11/07/23 15:00 11/07/23 15:00 11/07/23 15:00 11/07/23 15:00 11/07/23 15:00
Height 6 ft
Actual Weight 83 kg
Body Mass Index (BMI) 24.8
Physical Exam:�
General Appearance/Observation: Well-developed, well-nourished male in no apparent distress.�
Pain/Comfort Assessment: Denies�
Mood/Affect: Appropriate�
�
Integumentary/Operative Site:�
�� Pressure Ulcer Evaluation: absent over heels.�
�
Eyes: Conjunctiva/Lids: normal���� Pupils: pupils equal round and reactive to light and Accommodation�
Ears/Nose/Throat: oral mucosa moist,� throat clear.������������ Lips/Teeth/Gums: normal�
Cardiovascular: Heart: regular, no murmur�
Pulses: dorsalis pedis 2+ bilaterally�
Respiratory: Respiratory Effort/Chest Expansion: normal������� Auscultation: Clear to auscultation bilaterally�
Gastrointestinal: abdomen not tender, no distension, normal abdominal bowel sounds
Genitourinary: No Byers�
Extremities:�Edema: None�Cyanosis: None�Trophic�changes: None
�
Neurology Exam:
Orientation: Alert, Oriented to self, Time, Place�
Memory: Intact for recent medical concerns and short-term memory. Impaired for long-term memory.
Repetition: Impaired
Comprehension: Intact
Two step command: Intact
Naming: Impaired
Cranial Nerves:
�� CNII:�Pupillary light reflex: Intact����Visual Field: Intact
�� CN III, IV, : Extraocular muscles: Intact�
�� CN V:�Facial Sensation�at�Forehead: Intact,�Maxilla: Intact,�Mandible: Intact
�� CN VII:�Facial movement: Right facial weakness
�� CN VIII:�Hearing: Normal
�� CN IX/X:�Speech & swallow: Expressive aphasia, dysarthria, dysphagia. �Position of Uvula: Midline
�� CN XI:�Shoulder shrug: Decreased on right
�� CN XII:�Tongue protrusion: Midline
Sensory:
�� Light touch: Intact in bilateral upper and lower extremities, no extinction to double simultaneous stimulation.
�
Reflexes:
�� Biceps: 3+ right, 2+ left
�� Brachioradialis: 3+ right, 2+ left
�� Triceps: 3+ right, 2+ left
�� Patellar: 2+ bilaterally
�� Achilles: 2+ bilaterally
�� Babinski: Down going bilaterally
�� Clonus: None
�� Hilario: Present on the right, absent on left
Cerebellar: Dysmetria/Ataxia: None�
Musculoskeletal: Motor: (Manual muscle scale 0-5)�
Muscle SA EF WE EE FF FA HF KE DF EHL PF
Right� 4 4 4 4 4 4 5 5 5 5 5
Left 5 5 5 5 5 5 5 5 5 5 5
�
Tone: Normal in all extremities�
Range of Motion: Passively within normal limits in all extremities�
�
Lab Results
Laboratory Data
11/06/23 07:22
11/06/23 07:22
Total Bilirubin 0.9 mg/dl (0.2-1.3) 11/05/23 07:45
AST 57 U/L (17-59) 11/05/23 07:45
ALT 30 U/L (0-50) 11/05/23 07:45
Alkaline Phosphatase 72 U/L (38-126) 11/05/23 07:45
Total Protein 8.2 g/dl (6.3-8.2) 11/05/23 07:45
Albumin 4.7 g/dl (3.5-5.0) 11/05/23 07:45
�
Diagnostic Results:as per HPI�
�
Assessment
72y/o R-handed M PMH (HTN) with 11/05/2023 aphasia, dysphagia, right hemiparesis secondary to an acute left basal ganglia infarction with ADL, ambulatory, speech, and swallow dysfunction.
�
Plan�
PM&R: PT/OT to increase independence with ADLs, improve balance, coordination, endurance, strength, mobility, community reintegration, decreased burden of care on others and family education.�
�
CVA: Secondary prophylaxis with aspirin and Plavix for 21 days (last dose 11/26/2023) followed by aspirin lifelong, statin, and blood pressure control (SBP less than 180 and diastolic less than 100 to participate with therapy for ischemic stroke).
Continue to monitor neurologic status.�
Right dominant hemiparesis: High risk for falls and sliding out of chair/bed. Safety reinforced.�
- Avoid using affected arm to help lift or pull patient as this will cause trauma to the shoulder.
Dysphagia: speech, oral care protocol, aspiration precautions.� Advance to soft and bite-size with mildly thick liquid diet as tolerated.�
Dysarthria: speech�
Aphasia: speech �
HTN: Started on lisinopril, increase to 20 mg daily. Prevent hyper and hypotension, monitor closely�
Prediabetes: Hemoglobin A1c 5.9 diet education
B12 deficiency: Oral supplementation
Normocytic anemia: Continue to monitor.� On B12 supplementation
Psych: Psychology consult.� Monitor mood, medications as needed.�
Skin: monitor for pressure sores/rashes/lesions.�
Pain: acetaminophen as needed.�
Bowel: Colace and Senna, PRN bisacodyl.�
Bladder: Time void, PVRs, PRN straight cath.�
DVT Prophylaxis: Mechanical and Lovenox.�
Pulmonary: Incentive spirometry�
Safety: Continue to reinforce assistance with all transfers.�
Code Status:� DNR�
Dispo(date/plan/equipment needs): Home with family care.� Social history reviewed.�
Functional and Medical Goals:�Modified Independent with ADL�s, ambulation, transfers�
Discharge Destination: Acute inpatient rehabilitation
�
Summary of recommendations:
-�Discharge Destination:�Acute inpatient rehabilitation
CVA: Secondary prophylaxis with aspirin and Plavix for 21 days (last dose 11/26/2023) followed by aspirin lifelong, statin, and blood pressure control (SBP less than 180 and diastolic less than 100 to participate with therapy for ischemic stroke).
Continue to monitor neurologic status.�
Right dominant hemiparesis: High risk for falls and sliding out of chair/bed. Safety reinforced.�
- Avoid using affected arm to help lift or pull patient as this will cause trauma to the shoulder.
Dysphagia: speech, oral care protocol, aspiration precautions.� Advance to soft and bite-size with mildly thick liquid diet as tolerated.�
Dysarthria: speech�
Aphasia: speech �
Bowel: Colace and Senna, PRN bisacodyl.�
Bladder: Time void, PVRs, PRN straight cath.�
DVT Prophylaxis: Mechanical and Lovenox.�
Thank you for allowing me to care for your patient. Please contact me with any questions or concerns.
[2023-11-07] MEDS: LIPITOR 80 MG PO (17:07)
[2023-11-07] MEDS: LOVENOX 40 MG SC (17:12)
[2023-11-08] VITALS (8 sets, daily range): BP systolic 121–149; BP diastolic 59–75
--- NOTE | 2023-11-08 08:05 | W.PN.HOSP.TC ---
Today's Communication/Plan
-
Discharge to acute rehab when bed available
Assessment / Plan
Assessment / Plan
HPI: 72-year-old male with a past medical history of hypertension who presents with speech difficulties and dropping items since Friday. reports that patient was speaking less than usual since Friday, and was also sleeping more yesterday.
Patient has been having a difficult time dressing himself, and speaking. Patient went to work today, and his colleagues noticed he continued to be dropping items. Patient reports difficulty speaking, swallowing. He denies weakness. No fever, no
vomiting. No chest pain, no shortness of breath. No black or bloody stools. He has a known history of hypertension, but does not see doctors regularly.
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
#Expressive aphasia
#Dropping items
Neurology consulted, PT/OT/SPL, started on aspirin 81 mg daily for life, Plavix 75 mg daily x 3 weeks through 11/26/23
LDL 184�started atorvastatin. Echo reviewed
Goal of normotension
Medically stable for discharge to acute rehab when bed available
#Dysphagia
VSE 11/04 showing aspiration with thin liquids
SPL recommends soft diet with moderately thickened liquids, continue SPL
#Vitamin B12 deficiency
Started on oral vitamin B12 supplements
#Benign essential hypertension
Goal of normotension
Blood pressure controlled on lisinopril 20 mg daily
#Prediabetes, hemoglobin A1c 5.9
Monitor
#Bilateral arm resting tremor, right greater than left
Monitor
DVT prophylaxis�subcu Lovenox
DNR
Updated at bedside 11/06
Total time spent to see the patient on the floor, examine the patient, review data and lab results, discuss treatment plan with patient, nursing staff around 36 minutes.
Physical Exam
General: Well Developed, Well Nourished and No Apparent Distress
HEENT: NormoCephalic, Anicteric and Moist mucous membranes
Respiratory: Clear
Cardiac: S1/S2 and Regular Rhythm
GI: Soft, Non Tender, Non Distended and Normal Bowel Sounds
Musculoskeletal: No Clubbing, No Cyanosis and No Edema
Neuro: Awake, Alert and Other (Expressive aphasia noted, right facial droop noted, bilateral resting tremor of the arms, right greater than left)
Psych: Calm
Anticipated Discharge: Within 24 hours
Subjective/Interval History
-
Date of Service: November 08, 2023
Patient's dysarthria and dysphagia continues to improve.
Objective Data
-
Vital Signs:
Vital Signs
Temp Pulse Resp BP Pulse Ox
97.8 F 65 18 149/75 96
11/08/23 08:00 11/08/23 08:00 11/08/23 08:00 11/08/23 08:00 11/08/23 08:00
I&O
11/07/23 11/08/23 11/09/23
06:59 06:59 06:59
Intake Total 560 / 560 480 / 480
Output Total 500 / 500 1175 / 1175
Balance 60 / 60 -695 / -695
[2023-11-08] MEDS: VITAMIN B-12 1000 MCG PO (08:34)
[2023-11-08] MEDS: LOW STRENGTH ASPIRIN 81 MG PO (08:34)
[2023-11-08] MEDS: PLAVIX 75 MG PO (08:34)
[2023-11-08] MEDS: ZESTRIL 20 MG PO (08:34)
--- NOTE | 2023-11-08 15:00 | CM ---
CM received TT from [facility] liaison Araceli inquiring when the patient would be coming to [facility]. Explained no auth started, nor an acceptance in [facility]. Attempted to start auth, insurance company closed until Friday.
[2023-11-08] MEDS: LOVENOX 40 MG SC (17:08)
[2023-11-08] MEDS: LIPITOR 80 MG PO (17:08)
[2023-11-09] VITALS (9 sets, daily range): BP systolic 119–148; BP diastolic 58–86; PULSE 108–140; O2SAT 96–97
[2023-11-09] MEDS: DUONEB 3 ML INH ×3 (08:18→20:00)
--- NOTE | 2023-11-09 08:33 | W.PN.HOSP.TC ---
Addendum entered and electronically signed by Denzel Orozco MD 11/09/23 17:00:
Due to hyperkalemia, will hold lisinopril.
Will order amlodipine 10 mg daily for patient's hypertension instead.
Addendum entered and electronically signed by Denzel Orozco MD 11/09/23 16:57:
Chest x-ray negative for pneumonia.
Patient likely has aspiration pneumonitis.
Continue oxygen, DuoNebs, wean as tolerated.
Patient also hyperkalemic. Will change to low potassium diet, give Lokelma.
Original Note:
Today's Communication/Plan
-
Check CXR
Duoneb
Assessment / Plan
Assessment / Plan
HPI: 72-year-old male with a past medical history of hypertension who presents with speech difficulties and dropping items since Friday. reports that patient was speaking less than usual since Friday, and was also sleeping more yesterday.
Patient has been having a difficult time dressing himself, and speaking. Patient went to work today, and his colleagues noticed he continued to be dropping items. Patient reports difficulty speaking, swallowing. He denies weakness. No fever, no
vomiting. No chest pain, no shortness of breath. No black or bloody stools. He has a known history of hypertension, but does not see doctors regularly.
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
#Expressive aphasia
#Dropping items
Neurology consulted, PT/OT/SPL, started on aspirin 81 mg daily for life, Plavix 75 mg daily x 3 weeks through 11/26/23
LDL 184�started atorvastatin. Echo reviewed
Goal of normotension
Medically stable for discharge to acute rehab when bed available
#Acute hypoxic respiratory insufficiency
Likely aspirated dinner on 11/07
Currently requiring 4 L of oxygen on 11/08
Check chest x-ray, start DuoNebs
#Dysphagia
VSE 11/04 showing aspiration with thin liquids
SPL recommends soft diet with moderately thickened liquids, continue SPL
#Vitamin B12 deficiency
Started on oral vitamin B12 supplements
#Benign essential hypertension
Goal of normotension
Blood pressure controlled on lisinopril 20 mg daily
#Prediabetes, hemoglobin A1c 5.9
Monitor
#Bilateral arm resting tremor, right greater than left
Monitor
DVT prophylaxis�subcu Lovenox
DNR
Updated at bedside 11/08
Total time spent to see the patient on the floor, examine the patient, review data and lab results, discuss treatment plan with patient, nursing staff around 50 minutes.
Physical Exam
General: Well Developed, Well Nourished and No Apparent Distress
HEENT: NormoCephalic, Anicteric and Moist mucous membranes
Respiratory: Clear
Cardiac: S1/S2 and Regular Rhythm
GI: Soft, Non Tender, Non Distended and Normal Bowel Sounds
Musculoskeletal: No Clubbing, No Cyanosis and No Edema
Neuro: Awake, Alert and Other (Expressive aphasia noted, right facial droop noted, bilateral resting tremor of the arms, right greater than left)
Psych: Calm
Anticipated Discharge: Within 24 hours
Subjective/Interval History
-
Date of Service: November 09, 2023
Patient had a difficult time eating his salmon last night. This morning, he became hypoxic, requiring 4 L of oxygen. He denies shortness of breath. No coughing, no fever.
Objective Data
-
Vital Signs:
Vital Signs
Temp Pulse Resp BP Pulse Ox
98.1 F 92 18 137/81 92
11/09/23 07:15 11/09/23 08:21 11/09/23 08:21 11/09/23 07:15 11/09/23 08:21
I&O
11/08/23 11/09/23 11/10/23
06:59 06:59 06:59
Intake Total 480 / 480 1100 / 1100
Output Total 1175 / 1175 550 / 550
Balance -695 / -616 542 / 846
[2023-11-09] MEDS: LOW STRENGTH ASPIRIN 81 MG PO (09:12)
[2023-11-09] MEDS: VITAMIN B-12 1000 MCG PO (09:12)
[2023-11-09] MEDS: PLAVIX 75 MG PO (09:12)
[2023-11-09] MEDS: ZESTRIL 20 MG PO (09:12)
[2023-11-09] MEDS: ZOFRAN 4 MG IV (10:31)
[2023-11-09 16:13] LABS: % Basophils 0.2 % (0-2); % Immature Granulocytes 0.5 % (0-0.5); % Lymphocytes 4.6 % (20.5-51.1); % Monocytes 4.7 % (1.7-9.3); Absolute Basophils 0.1 10^3/uL (0-0.2); Absolute Immature Granulocytes 0.1 10^3/uL (0-0.05); Absolute Lymphocytes 0.9 10^3/uL (1.2-3.4); Absolute Neutrophils 18.1 10^3/uL (1.4-6.5); Hematocrit 39.7 % (39.0-52.0); Mean Corp Hgb Conc. 35.3 g/dL (33.0-37.0); Mean Corpuscular Volume 90.6 fL (80.0-94.0); Nucleated Red Blood Cells % 0 % (-); Platelet Count 212 10^3/uL (130-400); Red Blood Cell Count 4.38 10^6/uL (4.70-6.10); White Blood Cell Count 20.2 10^3/uL (4.8-10.8)
[2023-11-09 16:31] LABS: Blood Urea Nitrogen 32 mg/dl (9-20); Calcium 9.2 mg/dl (8.4-10.2); Carbon Dioxide 28 mmol/L (22-30); Chloride 99 mmol/L (98-107); Estimated Creatinine Clearance 58 ml/min; Glucose 131 mg/dl (70-99); Magnesium 2.1 mg/dl (1.6-2.3); Potassium 5.7 mmol/L (3.5-5.1); Sodium 137 mmol/L (135-145)
[2023-11-09] MEDS: LOVENOX 40 MG SC (17:28)
[2023-11-09] MEDS: MIRALAX 17 GRAMS PO (17:28)
[2023-11-09] MEDS: LOKELMA 10 GRAM PO (17:28)
[2023-11-09] MEDS: LIPITOR 80 MG PO (17:28)
[2023-11-10] VITALS (8 sets, daily range): BP systolic 126–145; BP diastolic 59–76; PULSE 87–91; O2SAT 97–98
[2023-11-10 08:21] LABS: Hematocrit 36.9 % (39.0-52.0); Hemoglobin 13.1 g/dL (13.0-18.0); Mean Corp Hgb Conc. 35.5 g/dL (33.0-37.0); Mean Corpuscular Hgb 32.3 pg (27.0-31.0); Mean Corpuscular Volume 90.9 fL (80.0-94.0); Mean Platelet Volume 9.4 fL (7.4-10.4); Platelet Count 188 10^3/uL (130-400); Red Blood Cell Count 4.06 10^6/uL (4.70-6.10); White Blood Cell Count 10.9 10^3/uL (4.8-10.8)
[2023-11-10] MEDS: MIRALAX 17 GRAMS PO (08:21)
[2023-11-10] MEDS: NORVASC 10 MG PO (08:22)
[2023-11-10] MEDS: LOW STRENGTH ASPIRIN 81 MG PO (08:22)
[2023-11-10] MEDS: PLAVIX 75 MG PO (08:22)
[2023-11-10] MEDS: VITAMIN B-12 1000 MCG PO (08:22)
[2023-11-10] MEDS: DUONEB 3 ML INH ×4 (08:25→19:14)
[2023-11-10 08:59] LABS: Blood Urea Nitrogen 38 mg/dl (9-20); Carbon Dioxide 25 mmol/L (22-30); Chloride 101 mmol/L (98-107); Estimated Creatinine Clearance 69 ml/min; Glucose 111 mg/dl (70-99); Potassium 4.8 mmol/L (3.5-5.1); Sodium 136 mmol/L (135-145); eGFR > 60.00
--- NOTE | 2023-11-10 10:13 | W.PN.HOSP.TC ---
Today's Communication/Plan
-
d/c later today if no further recommendations from speech
Assessment / Plan
Assessment / Plan
Gen: NAD, AAOx3.
Eyes: EOMI, PERRLA, no scleral icterus.
Neck: supple.
CV: RRR, +S1/S2, no m/r/g.
Resp: CTAB, no rales, wheezes, or rhonchi.
Abd: +BS, soft, NT, ND
Skin: No rashes.
Neuro: Slight right facial droop, otherwise CN 2-12 intact, non-focal.
Psych: Normal mood and affect.
CTA head/neck: Large evolving acute/subacute nonhemorrhagic left basal ganglia infarct.
MRI brain: Large acute ischemic infarct involving the left basal ganglia. No significant mass effect. No midline shift.
Echo:
1. Left ventricle: Normal size and function with an estimated ejection
fraction of 50-55% by visual estimation
2. Right ventricle: Normal
3. Atria: Normal
4. Mitral valve: Mild mitral regurgitation
5. Aortic valve: Mildly thickened and sclerotic. No aortic insufficiency
6. Tricuspid valve: No tricuspid regurgitation
7. No prior studies for comparison
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
-presented with expressive aphasia and dropping items
-imaging above
-cont ASA, plavix through 11/26/23, statin
-neuro saw in c/s
Acute hypoxic respiratory insufficiency due to aspiration pneumonitis:
-Likely aspirated dinner on 11/08/23
-CXR 11/09/23: No acute pulmonary process identified radiographically.
-was on 4L NC O2, now weaned to RA
Dysphagia:
-VSE 11/05/23 showed aspiration with thin liquids
-cont IDDSI diet as per speech
Other problems:
Vitamin B12 deficiency: cont PO B12
Essential hypertension
Prediabetes, a1c 5.9
Bilateral arm resting tremor, right greater than left
DNR/Lovenox
Anticipated Discharge: Today
Subjective/Interval History
-
Date of Service: November 10, 2023
No new complaints.
Objective Data
-
Labs:
Laboratory Results
11/10/23
07:36
WBC 10.9 H
Hgb 13.1
Hct 36.9 L
Plt Count 188
Sodium 136
Potassium 4.8
Chloride 101
Carbon Dioxide 25
BUN 38 H
Creatinine 1.1
Glucose 111 H
Calcium 9.0
Vital Signs:
Vital Signs
Temp Pulse Resp BP Pulse Ox
98.0 F 76 18 135/71 98
11/10/23 07:00 11/10/23 08:29 11/10/23 08:29 11/10/23 08:22 11/10/23 08:29
I&O
11/09/23 11/10/23 11/11/23
06:59 06:59 06:59
Intake Total 1100 / 1100 240 / 240
Output Total 550 / 550 500 / 500
Balance 550 / 550 -260 / -260
--- NOTE | 2023-11-10 12:47 | CM ---
Addendum entered by Kimberly Carpenter 11/10/23 15:53:
CM called for update on auth status ([phone]), informed auth is still pending. TT sent to liaison at [facility] with update.
Original Note:
CM faxed clinicals to [employer] ([phone]) for auth approval for patient to go to [facility], pending reference number [id number]. To check auth status, call [phone]. CM will continue to follow for all discharge
planning needs.
Plan; Auth pending for patient to discharge to [facility].
[2023-11-10] MEDS: LOVENOX 40 MG SC (17:48)
[2023-11-10] MEDS: LIPITOR 80 MG PO (17:48)
--- NOTE | 2023-11-10 18:17 | PTCARENOTE ---
NIHSS performed with outgoing RN. Scored as a 3 for obvious R sided facial droop at rest (2) and some mild aphasia (1). Educated pt and his on recognizing stroke symptoms, BE FAST, the importance of calling 911 sherif and new medications he is
ordered. NSR on tele. 95% on RA. Pt taking pills crushed in applesauce. Call [facility]chell within reach. Pt making needs known.
[2023-11-11] VITALS (7 sets, daily range): BP systolic 137–156; BP diastolic 67–85; PULSE 92
[2023-11-11] MEDS: PLAVIX 75 MG PO (07:38)
[2023-11-11] MEDS: LOW STRENGTH ASPIRIN 81 MG PO (07:38)
[2023-11-11] MEDS: VITAMIN B-12 1000 MCG PO (07:38)
[2023-11-11] MEDS: MIRALAX 17 GRAMS PO (07:39)
[2023-11-11] MEDS: NORVASC 10 MG PO (07:39)
[2023-11-11] MEDS: DUONEB 3 ML INH ×4 (08:14→20:22)
[2023-11-11 08:45] LABS: Hematocrit 41.1 % (39.0-52.0); Hemoglobin 13.8 g/dL (13.0-18.0); Mean Corp Hgb Conc. 33.6 g/dL (33.0-37.0); Mean Corpuscular Hgb 32.1 pg (27.0-31.0); Mean Corpuscular Volume 95.6 fL (80.0-94.0); Mean Platelet Volume 9.4 fL (7.4-10.4); Platelet Count 212 10^3/uL (130-400); Red Cell Dist. Width 13.1 % (11.5-14.5); White Blood Cell Count 14.1 10^3/uL (4.8-10.8)
--- NOTE | 2023-11-11 08:53 | CM ---
CM placed call to patients insurance for update on auth status ([phone]), informed auth is still pending, auth pending reference number [id number]. CM will call insurance again to check status.
Guillermo Keita pending insurance auth approval.
[2023-11-11 09:09] LABS: Blood Urea Nitrogen 42 mg/dl (9-20); Calcium 9.2 mg/dl (8.4-10.2); Carbon Dioxide 29 mmol/L (22-30); Chloride 98 mmol/L (98-107); Estimated Creatinine Clearance 75 ml/min; Glucose 123 mg/dl (70-99); Potassium 5.2 mmol/L (3.5-5.1); Sodium 139 mmol/L (135-145); eGFR > 60.00
--- NOTE | 2023-11-11 09:26 | W.PN.HOSP.TC ---
Today's Communication/Plan
-
d/c
Assessment / Plan
Assessment / Plan
Gen: NAD, Awake and alert
Eyes: EOMI, PERRLA, no scleral icterus.
Neck: supple.
CV: remains RRR, +S1/S2, no m/r/g.
Resp: remains CTAB, no rales, wheezes, or rhonchi.
Abd: +BS, soft, NT, ND
Skin: No rashes.
Neuro: Slight right facial droop, otherwise CN 2-12 intact, non-focal.
Psych: Normal mood and affect.
CTA head/neck: Large evolving acute/subacute nonhemorrhagic left basal ganglia infarct.
MRI brain: Large acute ischemic infarct involving the left basal ganglia. No significant mass effect. No midline shift.
Echo:
1. Left ventricle: Normal size and function with an estimated ejection
fraction of 50-55% by visual estimation
2. Right ventricle: Normal
3. Atria: Normal
4. Mitral valve: Mild mitral regurgitation
5. Aortic valve: Mildly thickened and sclerotic. No aortic insufficiency
6. Tricuspid valve: No tricuspid regurgitation
7. No prior studies for comparison
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
-presented with expressive aphasia and dropping items
-imaging above
-cont ASA, plavix through 11/26/23, statin
-neuro saw in c/s
Acute hypoxic respiratory insufficiency due to aspiration pneumonitis:
-Likely aspirated dinner on 11/08/23
-CXR 11/09/23: No acute pulmonary process identified radiographically.
-was on 4L NC O2, now weaned to RA
Dysphagia:
-VSE 11/05/23 showed aspiration with thin liquids
-cont IDDSI diet as per speech
Other problems:
Vitamin B12 deficiency: cont PO B12
Essential hypertension
Prediabetes, a1c 5.9
Bilateral arm resting tremor, right greater than left
DNR/Lovenox
Remains medically stable for d/c since 11/10/23. Case management aware.
Anticipated Discharge: Today
Subjective/Interval History
-
Date of Service: November 11, 2023
No new complaints.
Objective Data
-
Labs:
Laboratory Results
11/11/23
08:06
WBC 14.1 H
Hgb 13.8
Hct 41.1
Plt Count 212
Sodium 139
Potassium 5.2 H
Chloride 98
Carbon Dioxide 29
BUN 42 H
Creatinine 1.0
Glucose 123 H
Calcium 9.2
Vital Signs:
Vital Signs
Temp Pulse Resp BP Pulse Ox
97.2 F 78 18 141/72 97
11/11/23 07:00 11/11/23 08:16 11/11/23 08:16 11/11/23 07:00 11/11/23 08:16
I&O
11/10/23 11/11/23 11/12/23
06:59 06:59 06:59
Intake Total 240 / 240 1100 / 1100
Output Total 500 / 500 500 / 500
Balance -260 / -260 600 / 600
[2023-11-11] MEDS: LOKELMA 10 GRAM PO ×2 (14:25→17:07)
[2023-11-11] MEDS: LIPITOR 80 MG PO (17:06)
[2023-11-11] MEDS: LOVENOX 40 MG SC (17:06)
[2023-11-12 03:09] VITALS: BP 135/67
[2023-11-12] MEDS: LOKELMA 10 GRAM PO (05:45)
[2023-11-12 06:47] LABS: Hematocrit 35.8 % (39.0-52.0); Hemoglobin 12.3 g/dL (13.0-18.0); Mean Corp Hgb Conc. 34.4 g/dL (33.0-37.0); Mean Corpuscular Hgb 32.5 pg (27.0-31.0); Mean Corpuscular Volume 94.5 fL (80.0-94.0); Mean Platelet Volume 9.2 fL (7.4-10.4); Platelet Count 182 10^3/uL (130-400); Red Blood Cell Count 3.79 10^6/uL (4.70-6.10); Red Cell Dist. Width 12.8 % (11.5-14.5); White Blood Cell Count 10.8 10^3/uL (4.8-10.8)
[2023-11-12] MEDS: DUONEB 3 ML INH ×3 (07:26→15:34)
[2023-11-12] MEDS: LOW STRENGTH ASPIRIN 81 MG PO (07:27)
[2023-11-12] MEDS: NORVASC 10 MG PO (07:28)
[2023-11-12] MEDS: PLAVIX 75 MG PO (07:28)
[2023-11-12] MEDS: VITAMIN B-12 1000 MCG PO (07:28)
[2023-11-12] MEDS: MIRALAX 17 GRAMS PO (07:29)
[2023-11-12 07:44] VITALS: BP 127/66
[2023-11-12 08:39] LABS: Blood Urea Nitrogen 33 mg/dl (9-20); Calcium 8.8 mg/dl (8.4-10.2); Carbon Dioxide 29 mmol/L (22-30); Chloride 97 mmol/L (98-107); Estimated Creatinine Clearance 84 ml/min; Glucose 110 mg/dl (70-99); Potassium 4.5 mmol/L (3.5-5.1); Sodium 134 mmol/L (135-145); eGFR > 60.00
[2023-11-12 08:45] VITALS: BP 150/71; PULSE 127; PULSE 95; O2SAT 88
--- NOTE | 2023-11-12 09:22 | CM ---
Addendum entered by Kimberly Carpenter 11/12/23 15:09:
Auth approved [id number], 11/11-11/18, fax updates to [phone]. CM spoke to [facility] liaison, aware of auth approval, able to accept today. TT sent to Hospitalist with update. Patient and aware of [facility] acceptance.
Plan; [facility]
Report: [phone]
Fax: [phone]
Addendum entered by Kimberly Carpenter 11/12/23 12:14:
SUKHWINDER spoke to nurse Sherrell, , provided efax to send clinicals [phone]. Fax still not going through, two voicemails left to Sherrell at [place]. CM Director Holli Mcgowan aware to assist. Email for [email or web address],
clinicals securely sent, awaiting confirmation of receipt and auth approval for [facility].
Original Note:
CM placed call to patients insurance ([phone], option 4), inquiring about insurance auth. CM reports clinicals have been faxed over five times, patient is stable for discharge. Insurance reports auth is pending, clinicals have not been
received. CM reports she was given an additional fax number yesterday which clinicals were faxed to several times. CM now given a third fax number to fax clinicals to [phone], CM inquiring about number to call to confirm clinicals received- can
call [phone]. CM will call to confirm clinicals received.
Plan; [facility] pending insurance auth.
[2023-11-12 10:35] VITALS: BP 150/71; PULSE 127; PULSE 95; O2SAT 88
[2023-11-12 11:19] VITALS: BP 125/71
--- NOTE | 2023-11-12 13:34 | W.PN.HOSP.TC ---
Addendum entered and electronically signed by Alexis Hamilton MD 11/12/23 15:05:
Total time spent on d/c = 36 min. This included today's physical exam, progress note, review of laboratory and diagnostic data, preparation of discharge documents and prescriptions, and discussions about the pt's hospital course and discharge plan
with the patient and other medical claims analyst involved in the patient's care.
Original Note:
Today's Communication/Plan
-
d/c
Assessment / Plan
Assessment / Plan
Gen: NAD, Awake and alert
Eyes: EOMI, PERRLA, no scleral icterus.
Neck: supple.
CV: continues to remain RRR, +S1/S2, no m/r/g.
Resp: continues to remain CTAB, no rales, wheezes, or rhonchi.
Abd: +BS, soft, NT, ND
Skin: No rashes.
Neuro: remains Slight right facial droop, otherwise CN 2-12 intact, non-focal.
Psych: Normal mood and affect.
CTA head/neck: Large evolving acute/subacute nonhemorrhagic left basal ganglia infarct.
MRI brain: Large acute ischemic infarct involving the left basal ganglia. No significant mass effect. No midline shift.
Echo:
1. Left ventricle: Normal size and function with an estimated ejection
fraction of 50-55% by visual estimation
2. Right ventricle: Normal
3. Atria: Normal
4. Mitral valve: Mild mitral regurgitation
5. Aortic valve: Mildly thickened and sclerotic. No aortic insufficiency
6. Tricuspid valve: No tricuspid regurgitation
7. No prior studies for comparison
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
-presented with expressive aphasia and dropping items
-imaging above
-cont ASA, plavix through 11/26/23, statin
-neuro saw in c/s
Acute hypoxic respiratory insufficiency due to aspiration pneumonitis:
-Likely aspirated dinner on 11/08/23
-CXR 11/09/23: No acute pulmonary process identified radiographically.
-was on 4L NC O2, now weaned to RA
Dysphagia:
-VSE 11/05/23 showed aspiration with thin liquids
-cont IDDSI diet as per speech
Other problems:
Hyperkalemia, resolved, stop Lokelma
Vitamin B12 deficiency: cont PO B12
Essential hypertension
Prediabetes, a1c 5.9
Bilateral arm resting tremor, right greater than left
Pt's updated at bedside.
DNR/Lovenox
Remains medically stable for d/c since 11/10/23. Case management aware.
Anticipated Discharge: Today
Subjective/Interval History
-
Date of Service: November 12, 2023
No new complaints.
Objective Data
-
Labs:
Laboratory Results
11/12/23
06:33
WBC 10.8
Hgb 12.3 L
Hct 35.8 L
Plt Count 182
Sodium 134 L
Potassium 4.5
Chloride 97 L
Carbon Dioxide 29
BUN 33 H
Creatinine 0.9
Glucose 110 H
Calcium 8.8
Vital Signs:
Vital Signs
Temp Pulse Resp BP Pulse Ox
98.5 F 78 20 125/71 95
11/12/23 11:19 11/12/23 12:30 11/12/23 12:30 11/12/23 11:19 11/12/23 12:30
I&O
11/11/23 11/12/23 11/13/23
06:59 06:59 06:59
Intake Total 1100 / 1100 1380 / 1380
Output Total 500 / 500 1050 / 1050
Balance 600 / 600 330 / 330
--- NOTE | 2023-11-12 15:05 | W.DCSUMMARY ---
Discharge Summary
Discharge Data
Date of Admission: 11/05/23
Date of Discharge: 11/12/23
-
Pending Results: No
Hospital Course
Primary diagnoses:
Acute cerebrovascular accident of the left basal ganglia
Acute hypoxic respiratory insufficiency due to aspiration pneumonitis
Dysphagia
Secondary diagnoses:
Hyperkalemia
Vitamin B12 deficiency
Essential hypertension
Prediabetes
Bilateral arm resting tremor, right greater than left
Consultants:
Neurology
Imaging:
CTA head/neck: Large evolving acute/subacute nonhemorrhagic left basal ganglia infarct.
MRI brain: Large acute ischemic infarct involving the left basal ganglia. No significant mass effect. No midline shift.
Echo:
1. Left ventricle: Normal size and function with an estimated ejection
fraction of 50-55% by visual estimation
2. Right ventricle: Normal
3. Atria: Normal
4. Mitral valve: Mild mitral regurgitation
5. Aortic valve: Mildly thickened and sclerotic. No aortic insufficiency
6. Tricuspid valve: No tricuspid regurgitation
7. No prior studies for comparison
72-year-old male who presented with a chief complaint of speech difficulties and 'dropping things' as outlined in the H&P done on admission. Hospital course by problem list:
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 Imaging above. The patient placed on aspirin and Plavix and the Plavix to be continued through November 26, 2023. The patient was placed on
statin. Neurology saw the patient in consultation
Acute hypoxic respiratory insufficiency due to aspiration pneumonitis: This was likely due to an aspiration event during dinner on 11/08/23. CXR 11/09/23 showed No acute pulmonary process identified radiographically. The patient initially required 4L
NC O2 and was weaned to room air.
Dysphagia: Video swallow study on 11/05/23 showed aspiration with thin liquids. Speech recommended IDDSI-6 diet.
Discharge Plan
-
Patient Disposition: [facility]sp/SNF
Discharge Diagnosis/Procedures: Acute cerebrovascular accident of the left basal ganglia
Condition: Good
Diet: Other diet
Additional Diets: IDDSI 6, soft and bite sized
Activity: With assistance
Driving Restrictions: No driving
Bathing Restrictions: None
Blood Work: BMP in 3 days, script from PCP
Referrals:
NONE,* [Family Provider] - in less than 1 week
Prescriptions:
New
clopidogrel 75 mg Tablet
75 mg PO DAILY Qty: 0 0RF
Rx Instructions:
through 11/26/23
atorvastatin 80 mg Tablet
80 mg PO QPM Qty: 0 0RF
lisinopril 20 mg Tablet
20 mg PO DAILY Qty: 0 0RF
amlodipine 10 mg Tablet
10 mg PO DAILY Qty: 0 0RF
aspirin 81 mg Tablet,Chewable
81 mg PO DAILY Qty: 0 0RF
polyethylene glycol 3350 [HealthyLax] 17 gram Powder In Packet
17 g PO DAILY Qty: 0 0RF
cyanocobalamin (vitamin B-12) 1,000 mcg Tablet
1,000 mcg PO DAILY Qty: 0 0RF
Discharge Orders:
Discharge Patient (As Directed); Ordered 11/12/23
Ordered By: Alexis Hamilton
Discharge Date and Time
Print Language: YORUBA
[2023-11-12 15:54] VITALS: BP 166/84
[2023-11-12] MEDS: LOVENOX SC (17:12)
[2023-11-12] MEDS: LIPITOR 80 MG PO (17:12)
== END 2023-11-12 17:48 | DRG 64 ==
LOC: 4 WEST ACU 11:35
PROVIDERS: ADMITTING PHYSICIAN Family Medicine; ATTENDING PHYSICIAN Internal Medicine; CONSULT PHYSICIAN Physical Medicine & Rehabilitation; CONSULT PHYSICIAN Psychiatry & Neurology Neurology; EMERGENCY PHYSICIAN Emergency Medicine
DX: I63.89 Other cerebral infarction (principal); J69.0 Pneumonitis due to inhalation of food and vomit; G81.91 Hemiplegia, unspecified affecting right dominant side; R29.810 Facial weakness; R47.01 Aphasia; I10 Essential (primary) hypertension; E53.8 Deficiency of other specified B group vitamins; E87.5 Hyperkalemia; R09.02 Hypoxemia; R06.89 Other abnormalities of breathing; R73.03 Prediabetes; R13.10 Dysphagia, unspecified; E78.5 Hyperlipidemia, unspecified; Z66 Do not resuscitate; Z86.16 Personal history of COVID-19
CPT/HCPCS: 70496; 70498; 70551; 71046; 74230; 80048; 80053; 80061; 81003; 82607; 82728; 82746; 83036; 83735; 84443; 85025; 85027; 92507; 92526; 92611; 93005; 93306; 94640; 97110; 97116; 97163; 97166; 97530; 97535; 99285; A9575; Q9967

== ENCOUNTER 2023-11-15 09:23 | Emergency (ER) | payer BC, MEDICARE, SELFPAY ==
[2023-11-15] VITALS (7 sets, daily range): BP systolic 113–125; BP diastolic 51–71
[2023-11-15 09:34] LABS: Glucose - Point of Care 148 mg/dl (70-99)
--- NOTE | 2023-11-15 09:36 | ED.GENMED ---
History of Present Illness
General
Chief Complaint: Fainting/Passed Out
Source: patient and other ([facility] staff)
Time Seen by Provider: 11/15/23 09:33
History of Present Illness
History of Present Illness:
72-year-old male brought to the emergency room from inpatient [facility]. Patient was in the gym doing feet PT when he began having a headache and feeling dizzy. He vomited. Patient was recently admitted to [facility] on November 11 after hospitalization
for CVA. Patient's symptoms at the time of his stroke were right-sided weakness and aphasia. Patient still is aphasic and does have some difficulty expressing himself.
Past History
Past History
ED Past Medical History: CVA (November 2023) and HTN; Negative Asthma, Hypercholesterolemia or NIDDM
ED Past Surgical History: None
Social History
Tobacco: Non-smoker
Alcohol: None
Personal:
Living: with family
Family History
Family History: Other (Reviewed and noncontributory)
Phy Exam
Physical Exam
Physical Exam:
General: Awake, Alert, Oriented X3. Somewhat confused, not able to provide much history
Vitals: unremarkable
Head: Atraumatic
Eyes: Pupils equal, EOMI
Throat: Airway intact, no exudates
Neck: Trachea midline
Lungs: Clear and equal b/l
Heart: Regular rate, no murmurs
Abd: Soft, Nontender, No pulsatile mass
Neuro: Moves all extremities equally
Skin: Warm, dry, no rash
Extremities: pulses equal b/l, no edema
Course
Orders/Labs/Results
Orders:
Orders
11/15/23 09:33
Electrocardiogram (*1) Stat
Reason for Study: Other
Other Reason for Exam: neuro symptoms
CT Head W/o Iv Contrast Urgent
Comment:
Reason For Exam: headache, dizzy, vomiting
Cardiac Monitoring- Treatment ONCE
EKG- Treatment ONCE
11/15/23 09:37
Basic Metabolic Panel Urgent
Complete Blood Count/With Diff Urgent
11/15/23 09:48
Ondansetron Injectable [Zofran] 4 mg IV NOW STA
11/15/23 10:54
0.9% Sodium Chloride 500 ml [Nss] 500 ml IV BOLUS
Abnormal Lab Results
11/15/23 11/15/23
09:32 09:37
RBC 4.13 L 10^6/uL
(4.70-6.10)
Hct 37.2 L %
(39.0-52.0)
MCH 32.0 H pg
(27.0-31.0)
Absolute Neuts (auto) 7.3 H 10^3/uL
(1.4-6.5)
Absolute Monos (auto) 1.0 H 10^3/uL
(0.1-0.6)
Lymphocytes % 17.9 L %
(20.5-51.1)
Sodium 134 L mmol/L
(135-145)
BUN 37 H mg/dl
(9-20)
Glucose 145 H mg/dl
(70-99)
POC Glucose 148 H mg/dl
(70-99)
11/15/23 09:37
11/15/23 09:37
Vital Signs
Initial and Last Documented VS:
Initial Vital Signs
Pulse Resp BP Pulse Ox
93 21 115/71 90
11/15/23 09:45 11/15/23 09:45 11/15/23 09:45 11/15/23 09:45
Last Documented Vital Signs
Pulse Resp BP Pulse Ox
79 29 125/53 97
11/15/23 15:30 11/15/23 15:30 11/15/23 15:00 11/15/23 15:15
MDM/Problems Addressed
Differential Diagnosis Includes:
Vasovagal event, seizure, dehydration
MDM/Problems Addressed:
Patient has been having some issues with nausea and vomiting during rehab. I believe what occurred today was that he had some nausea that precipitated a vasovagal event. Patient has no new focal neurologic deficits. Workup here is unremarkable.
I believe patient is stable for discharge back to [facility] to continue his rehabilitation.
*Radiology
Radiology exam reviewed: radiology read reviewed
*Pulse Oximetry
Patient hypoxic: no
*EKG
Interpreted by ED Provider?: Yes
Heart Rate: 75
Rate: normal
Rhythm: sinus
[place]: normal axis
Interval: normal interval
QRS Pattern: normal QRS
Ischemia: no ischemia
*Leak Patcher Interpretation
Rate: normal
Interpretation: normal
Rhythm: sinus
*Critical Care Note
Total Time (30-74mins, 75-104mins- exclusive of procedures): Not Applicable
ED Attending Note
-
Portions of this chart may have been created with voice recognition software.� Occasional wrong word or��sound alike� substitutions may have occurred due to the inherent limitations of voice recognition software.
Discharge Plan
Departure
Patient Disposition: Residential/SNF
Date of Disposition: 11/15/23
Time of Disposition: 14:17
Condition: Good
Discharge Problem:
Nausea & vomiting, Vasovagal syncope
Instructions: Syncope (Fainting) (DC), Acute Nausea and Vomiting
Prescriptions:
New
ondansetron 4 mg tablet,disintegrating
4 mg PO Q8H PRN (Reason: nausea and vomiting) Qty: 20 0RF
No Action
clopidogrel 75 mg Tablet
75 mg PO DAILY Qty: 0 0RF
Rx Instructions:
through 11/26/23
atorvastatin 80 mg Tablet
80 mg PO QPM Qty: 0 0RF
lisinopril 20 mg Tablet
20 mg PO DAILY Qty: 0 0RF
amlodipine 10 mg Tablet
10 mg PO DAILY Qty: 0 0RF
aspirin 81 mg Tablet,Chewable
81 mg PO DAILY Qty: 0 0RF
polyethylene glycol 3350 [HealthyLax] 17 gram Powder In Packet
17 g PO DAILY Qty: 0 0RF
cyanocobalamin (vitamin B-12) 1,000 mcg Tablet
1,000 mcg PO DAILY Qty: 0 0RF
Referrals:
NONE,* [Family Provider] -
Interventions
Interventions:
*Nursing Disposition Last Done: 11/15/23 15:33
Discharge Date and Time
Discharge Date/Time: 11/15/23 15:35
Print Language: CZECH
[2023-11-15 09:48] LABS: % Basophils 0.6 % (0-2); % Eosinophils 2.4 % (0-6); % Immature Granulocytes 0.4 % (0-0.5); % Lymphocytes 17.9 % (20.5-51.1); % Monocytes 9.2 % (1.7-9.3); % Neutrophils 69.5 % (42.2-75.2); Absolute Basophils 0.1 10^3/uL (0-0.2); Absolute Eosinophils 0.3 10^3/uL (0-0.7); Absolute Lymphocytes 1.9 10^3/uL (1.2-3.4); Absolute Neutrophils 7.3 10^3/uL (1.4-6.5); Hematocrit 37.2 % (39.0-52.0); Hemoglobin 13.2 g/dL (13.0-18.0); Mean Corp Hgb Conc. 35.5 g/dL (33.0-37.0); Mean Corpuscular Volume 90.1 fL (80.0-94.0); Mean Platelet Volume 9.2 fL (7.4-10.4); Nucleated Red Blood Cells % 0 % (-); Platelet Count 244 10^3/uL (130-400); Red Blood Cell Count 4.13 10^6/uL (4.70-6.10); Red Cell Dist. Width 12.5 % (11.5-14.5); White Blood Cell Count 10.5 10^3/uL (4.8-10.8)
[2023-11-15] MEDS: ZOFRAN 4 MG IV (10:29)
[2023-11-15 10:32] LABS: Blood Urea Nitrogen 37 mg/dl (9-20); Calcium 8.9 mg/dl (8.4-10.2); Carbon Dioxide 25 mmol/L (22-30); Chloride 99 mmol/L (98-107); Glucose 145 mg/dl (70-99); Potassium 4.5 mmol/L (3.5-5.1); Sodium 134 mmol/L (135-145); eGFR > 60.00
[2023-11-15] MEDS: NSS 500 IV (11:30)
== END 2023-11-15 15:35 ==
LOC: EMR 09:23
PROVIDERS: EMERGENCY PHYSICIAN Emergency Medicine
DX: R11.2 Nausea with vomiting, unspecified (principal); R55 Syncope and collapse
CPT/HCPCS: 99285; 96374; 96361; 70450; 80048; 82962; 85025; 93005

== ENCOUNTER 2023-12-03 06:32 | Outpatient (RCR) | payer BC, MEDICARE, SELFPAY | END 2023-12-03 23:59 | disposition home or self-care (01) | LOC: RPT 06:32 | PROVIDERS: ATTENDING PHYSICIAN Physical Medicine & Rehabilitation; FAMILY PHYSICIAN Family Medicine | DX: I69.398 Other sequelae of cerebral infarction (principal); Z73.6 Limitation of activities due to disability; R26.9 Unspecified abnormalities of gait and mobility | CPT/HCPCS: 97110; 97163; 97167 ==

== ENCOUNTER 2023-12-30 14:29 | Outpatient (RCR) | payer BC, MEDICARE, SELFPAY | END 2023-12-30 23:59 | disposition home or self-care (01) | LOC: RST 14:29 | PROVIDERS: ATTENDING PHYSICIAN Physical Medicine & Rehabilitation; FAMILY PHYSICIAN Family Medicine | DX: I69.328 Other speech and language deficits following cerebral infarction (principal); I69.318 Other symptoms and signs involving cognitive functions following cerebral infarction; I69.391 Dysphagia following cerebral infarction; R13.12 Dysphagia, oropharyngeal phase | CPT/HCPCS: 92507; 92523; 92610; 96125; 97110; 97112; 97116; 97129; 97130; 97530; 97535 ==

== ENCOUNTER 2024-01-28 14:26 | Outpatient (RCR) | payer BC, MEDICARE, SELFPAY | END 2024-01-28 23:59 | disposition home or self-care (01) | LOC: RST 14:26 | PROVIDERS: ATTENDING PHYSICIAN Physical Medicine & Rehabilitation; FAMILY PHYSICIAN Family Medicine | DX: I69.318 Other symptoms and signs involving cognitive functions following cerebral infarction (principal); I69.351 Hemiplegia and hemiparesis following cerebral infarction affecting right dominant side; I69.321 Dysphasia following cerebral infarction; I69.391 Dysphagia following cerebral infarction; I69.398 Other sequelae of cerebral infarction; R13.12 Dysphagia, oropharyngeal phase; R26.89 Other abnormalities of gait and mobility; Z73.6 Limitation of activities due to disability | CPT/HCPCS: 92507; 97010; 97110; 97112; 97129; 97130; 97530; 97535 ==

== ENCOUNTER 2024-02-04 15:48 | Outpatient (RCR) | payer BC, MEDICARE, SELFPAY | END 2024-02-04 23:59 | disposition home or self-care (01) | LOC: RST 15:48 | PROVIDERS: ATTENDING PHYSICIAN Physical Medicine & Rehabilitation; FAMILY PHYSICIAN Family Medicine | DX: I69.30 Unspecified sequelae of cerebral infarction (principal); I69.328 Other speech and language deficits following cerebral infarction; I69.318 Other symptoms and signs involving cognitive functions following cerebral infarction; R13.12 Dysphagia, oropharyngeal phase | CPT/HCPCS: 92507; 97530 ==

== ENCOUNTER 2024-03-31 15:02 | Outpatient (RCR) | payer BC, MEDICARE, SELFPAY | END 2024-03-31 23:59 | disposition home or self-care (01) | LOC: RST 15:02 | PROVIDERS: ATTENDING PHYSICIAN Family Medicine | DX: I69.328 Other speech and language deficits following cerebral infarction (principal); S52.124D Nondisplaced fracture of head of right radius, subsequent encounter for closed fracture with routine healing (principal); I69.30 Unspecified sequelae of cerebral infarction; G81.91 Hemiplegia, unspecified affecting right dominant side; Z86.73 Personal history of transient ischemic attack (TIA), and cerebral infarction without residual deficits; I69.318 Other symptoms and signs involving cognitive functions following cerebral infarction; R13.12 Dysphagia, oropharyngeal phase; Z73.6 Limitation of activities due to disability | CPT/HCPCS: 97010; 97110; 97140; 97161; 97167; 97530; 97535 ==

== ENCOUNTER → 2024-04-09 13:59 | Outpatient (REF) | payer BC, SELFPAY | LOC: RAD 13:59 | PROVIDERS: ATTENDING PHYSICIAN Physician Assistant Medical; FAMILY PHYSICIAN Physician Assistant | DX: S22.060A Wedge compression fracture of T7-T8 vertebra, initial encounter for closed fracture (principal) | CPT/HCPCS: 72070 ==

== ENCOUNTER 2024-05-03 14:55 | Outpatient (RCR) | payer BC, MEDICARE, SELFPAY | END 2024-05-03 23:59 | disposition home or self-care (01) | LOC: RST 14:55 | PROVIDERS: ATTENDING PHYSICIAN Family Medicine | DX: S53.125D Posterior dislocation of left ulnohumeral joint, subsequent encounter (principal); I69.328 Other speech and language deficits following cerebral infarction (principal); I69.30 Unspecified sequelae of cerebral infarction; I69.351 Hemiplegia and hemiparesis following cerebral infarction affecting right dominant side; I69.318 Other symptoms and signs involving cognitive functions following cerebral infarction; R13.12 Dysphagia, oropharyngeal phase; I69.398 Other sequelae of cerebral infarction; S52.124D Nondisplaced fracture of head of right radius, subsequent encounter for closed fracture with routine healing; G81.91 Hemiplegia, unspecified affecting right dominant side; Z86.73 Personal history of transient ischemic attack (TIA), and cerebral infarction without residual deficits; Z73.6 Limitation of activities due to disability | CPT/HCPCS: 97010; 97110; 97140; 97530; 97535 ==